=== PATIENT | male | born 1930 | race Caucasian/White ===

== ENCOUNTER 2016-03-20 12:04 | Day surgery (SDC) | payer OTHER ==
[2016-03-15 15:16] VITALS: BMI 41.0
[~2016-03-20] VITALS: Ht 160 cm; Wt 107.0 kg
[~2016-03-20 12:04] MED LIST: AMPI500C9 PO; ATEN50TA8 PO; ATOR-26 PO; CHOL1000 PO; DIGO0.2519 PO; LACTATED RINGER'S 1000ML 1,000 ML IV SCH; LISI-729 PO; MULT-190 PO; MULT-506 PO; PSYL1POW4 PO; VANCOMYCIN INJ 1,000 MG in SODIUM CHLORIDE 0.9% 250ML 250 ML IV SCH
[2016-03-20 12:27] VITALS: BP 147/84; PULSE 79; TEMP 37; O2SAT 96; Ht 160 cm; Wt 107.0 kg
[2016-03-20] MEDS ORDERED: FENTANYL CITRATE INJ 50 MCG/1 ML 2 ML VIAL ONE (12:33)
--- NOTE | 2016-03-20 12:49 | History & Physical Bridge Note ---
H&P Re-Evaluation Bridge Note: I have examined the patient, reviewed the History & Physical and in the interval since the performance of the History & Physical I have noted the following changes of clinical significance: No changes noted
[2016-03-20] MEDS ORDERED: FENTANYL CITRATE INJ 50 MCG/1 ML 2 ML VIAL IV PRN (13:15)
[2016-03-20] MEDS ORDERED: ONDANSETRON INJ 2 MG/ML 2 ML VIAL IV PRN (13:15)
[2016-03-20] MEDS ORDERED: ATROPINE SULFATE 0.1 MG/ML 5ML SYR IV PRN (13:15)
[2016-03-20] MEDS ORDERED: LABETALOL HCL IV 5 MG/ML 20ML IV PRN (13:15)
[2016-03-20] MEDS ORDERED: ONDANSETRON INJ 2 MG/ML 2 ML VIAL ONE ×2 (13:23→14:50)
[2016-03-20] MEDS ORDERED: LIDOCAINE HCL 2% 2 ML VIAL (20MG/ML) ONE (13:23)
[2016-03-20] MEDS ORDERED: PHENYLEPHRINE 100MCG/ML 5ML SYR ONE (13:23)
[2016-03-20] MEDS ORDERED: PROPOFOL IV EMULSION 10 MG/ML 20 ML VIAL IV ONE (13:23)
[2016-03-20] MEDS ORDERED: ETOMIDATE 2 MG/ML 20 ML VIAL IV ONE (13:23)
--- NOTE | 2016-03-20 14:32 | [facility] Post Operative Brief Note ---
Immediate Operative Summary Operative Date Mar 20, 2016. 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 Gallagher Hr Administrative Assistant Surgeon(s) none Estimated Blood Loss 10cc Findings Previously treated left distal ureteral tumor seems to have responded well to his prior treatment. At most, there was a very small papillary frond, and this was lasered and destroyed after it was biopsied. Overall ureteral health appeared to be good. Unfortunately, his full ureter was very tight and did not readily accept a flexible scope. I balloon dilated the area near my prior surgery, but even the proximal ureter was quite tight. I was able to pass a flexible scope to the level of the upper and lower pole moieties bifurcation ( UPJ) but not into the kidney itself. I performed a careful exit ureteroscopy and found a healthy looking ureter without tumors or trauma from the efforts at dilation Specimens Specimen: A. left distal ureteral biopsy Drains [id number] Anesthesia gen Complication(s) None Disposition Recovery Room / PACU (stable)
[2016-03-20] MEDS ORDERED: ACET-749 PO (14:34)
[2016-03-20] MEDS ORDERED: KETOROLAC TROMETHAMINE 30 MG/ML VIAL IV. STA (14:34)
[2016-03-20] MEDS ORDERED: SODIUM CHLORIDE 0.9% 1000ML 1,000 ML IV SCH (14:34)
[2016-03-20] MEDS ORDERED: DOCU-94 PO (14:34)
--- NOTE | 2016-03-20 14:36 | Discharge Instructions ---
Discharge Instructions Admission Reason for Admission: Ureteral Tumor Discharge Discharge Diagnosis / Problem: Ureteral tumor Discharge Goals Goal(s): Decrease discomfort, Improve function, Increase independence, Improve disease control Activity Recommendations Activity Limitations: resume your previous activity Lifting Limitations: none Exercise/Sports Limitations: none May Resume Sexual Activity: when tolerated Shower/Bathe: no limitations Driving or Machine Use: no limitations . Instructions / Follow-Up Instructions / Follow-Up Please keep your previously scheduled follow up appointment with Dr. Gallagher Discharge Diet Recommended Diet: Regular Diet Procedures Procedures Performed: Cystoscopy, Left Retrograde Pyelogram, Ureteroscopy/Biopsy left ureteral lesion ; laser ablation of left ureteral tumor ; Left ureteral dilation (balloon); L ureteral stent placement ([id number]) Pending Studies Studies pending at discharge: no Medical Emergencies . Who to Call and When: Medical Emergencies: If at any time you feel your situation is an emergency, please call 911 immediately. . Non-Emergent Contact Non-Emergency issues call your: Urologist Call Non-Emergent contact if: you have a fever, temperature is above 101.5, your pain is worsening . . "Provider Documentation" section prepared by Fuad Cooper. VTE Core Measure Inpt VTE Proph given/why not?: Treatment not indicated
[2016-03-20] MEDS ORDERED: OXYCODONE/ACETAMINOPHEN 5-325 TAB PO PRN ×2 (14:45)
--- NOTE | 2016-03-20 15:03 | Anesthesiology Progress Note ---
Anesthesia Post Op Note Date & Time Mar 20, 2016 at 15:02 Vital Signs Vital Signs Past 12 Hours Date Time Temp Pulse Resp B/P Pulse Ox O2 Delivery O2 Flow Rate FiO2 03/20/16 15:00 63 16 152/77 98 Room Air 03/20/16 14:50 61 16 157/78 99 Room Air 03/20/16 14:43 62 16 152/77 100 Mask 10 03/20/16 14:33 36.0 62 16 132/63 100 Mask 10 03/20/16 12:27 37.0 79 22 147/84 96 Room Air Notes Mental Status: alert / awake / arousable, participated in evaluation Pt Amnestic to Procedure: Yes Nausea / Vomiting: adequately controlled Pain: adequately controlled Airway Patency, RR, SpO2: stable & adequate BP & HR: stable & adequate Hydration State: stable & adequate Anesthetic Complications: no major complications apparent
[2016-03-20 15:10] VITALS: BP 145/86; PULSE 66; TEMP 36.5; O2SAT 98
--- NOTE | 2016-03-20 15:26 | OPERATIVE REPORT ---
DATE OF OPERATION: 03/20/2016 PREOPERATIVE DIAGNOSIS: Left ureteral tumor. POSTOPERATIVE DIAGNOSIS: Left ureteral tumor. PROCEDURE PERFORMED: Cystoscopy, left ureteroscopy, left biopsy of ureteral tumor, left laser ablation of ureteral tumor, left retrograde pyelogram, left balloon dilation, left ureteral stent placement 6 [place] x 26 cm. SURGEON: Dr. Christ Gallagher. ANESTHESIA: General. ESTIMATED BLOOD LOSS: 10 mL. URINE OUTPUT: Not recorded. SPECIMENS: Left ureteral biopsy for routine pathology. DESCRIPTION OF THE PROCEDURE: Michael Ferguson was identified in the preoperative holding area. Appropriate informed consents were reviewed and completed and the patient was transported to the operating suite. Upon arrival, he received appropriate preoperative antibiotics in the form of vancomycin. Adequate general anesthesia was achieved and the patient was placed in dorsolithotomy position where he was sterilely prepped and draped in standard fashion. I began the case by passing a 22-[place] cystoscope per urethra and inspecting the bladder. He has a healthy appearing bladder without any evidence of mucosal tumors in the bladder. Ureteral orifices were in orthotopic position. Left ureteral orifice was cannulated with a sensor wire and a 5 [place] open ended catheter. The wire was advanced to the kidney without difficulty. I then withdrew the catheter and the cystoscope and I entered alongside the wire with a semirigid ureteroscope. Utilizing a second wire to help stent open the ureteral orifice, I was able to guide the semi-rigid scope into the ureter. Approximately 4-5 cm above the UO I encountered an area consistent with the area previously treated for ureteral tumor. There was no clear papillary tumors in this area, but it was somewhat tight. I was able to navigate the semirigid scope through this. Just above this area was slightly dilated and in that area there may have been one small papillary frond protruding. DICTATION ENDED HERE! I attest to the content of the Intraoperative Record and any orders documented therein. Any exceptio ns are noted below.
[2016-03-20 15:41] VITALS: BP 115/82; PULSE 66; O2SAT 98
[2016-03-20 16:15] VITALS: BP 152/83; PULSE 78; TEMP 36.4; O2SAT 98
--- NOTE | 2016-03-20 16:40 | OPERATIVE REPORT ---
DATE OF OPERATION: 03/20/2016 PREOPERATIVE DIAGNOSIS: Left ureteral tumor. POSTOPERATIVE DIAGNOSIS: Left ureteral tumor. PROCEDURES PERFORMED: Cystoscopy, left ureteroscopy, left ureteral biopsy of tumor, left laser ablation of tumor, left ureteral dilation with balloon, left retrograde pyelogram and left ureteral stent placement 6 [place] x 26 cm. ANESTHESIA: General. ESTIMATED BLOOD LOSS: 10 mL. URINE OUTPUT: Not recorded. SPECIMENS: Left ureteral biopsy. COMPLICATIONS: There were no complications. DESCRIPTION OF THE PROCEDURE: Michael Ferguson was identified in the preoperative holding area. Appropriate informed consents were reviewed and completed and the patient was transported to the operating suite. Upon arrival, he received appropriate preoperative antibiotics in the form of vancomycin. Adequate general anesthesia was achieved and the patient was placed in dorsal lithotomy position where he was sterilely prepped and draped in standard fashion. I began the case by passing a 22-[place] cystoscope per urethra. Inspection of the urethra revealed no evidence of stricture disease. Prostate was patent and open. Inspection of the bladder revealed no evidence of any mucosal disease or tumors within the bladder itself. Ureteral orifices were in orthotopic position. I was able to visualize the left UO and cannulate it with a 6-[place] open-ended catheter and a sensor wire. I then reentered the bladder alongside the wire with a semirigid ureteroscope. I guided this into the distal aspect of the ureter without difficulty, utilizing a second wire to help stent open the ureteral orifice. I was able to advance this retrograde to the level the tumor was previously seen. It was slightly tight in this area, but I was able to navigate the scope beyond that without difficulty. There was slight dilation just above the area of previous treatment. In this area, there may have been one small papillary frond visible, protruding from the left lateral wall of the ureter. This was captured in a biopsy forceps, utilizing the [place] ureteroscopic biopsy forceps and this was excised en bloc with that. I biopsied several other areas around this region. Then I passed a laser fiber and fulgurated the base of all these biopsy sites and any other area I would be more concerned for tumor recurrence. Overall, my impression is that he responded extremely well to his initial treatment endoscopically of this ureteral tumor. After feeling comfortable with this area of the ureter, I passed a second wire through the scope to the level of the kidney and made an effort to pass a flexible scope. Of note, I did advance the rigid scope to its maximal extent and saw no other tumors within the ureter up above the vessels. Wire advanced to the kidney without difficulty. I attempted to pass a flexible scope; however, it was not passed easily, catching at the area that was somewhat tight at the distal most aspect of my prior treatment location. After an attempt to dilate this with a 10-[place] double-lumen catheter also failed, I did attempt to pass a balloon dilator and I dilated this area without difficulty. There was a waste visualized fluoroscopically which opened appropriately. Ultimately, I was able to bypass this area utilizing a disassembled flexible ureteroscope. It advanced with pretty significant difficulty through the remaining part of the ureter and I ultimately got it up to the level of the UPJ. I was able to go no further after that extent. Inspection at that area revealed no evidence of clear stricture, just a tight ureter in general. I passed some contrast at that time and I saw bifurcation of the system which is the point where I was able to advance this into the upper and lower pole of the collecting system of the kidney. I was approximately at the UPJ. I performed a careful exit ureteroscopy. There was relatively atraumatic ureter with no evidence of any other mucosal abnormalities, strictures or tumors. After exiting with the ureteroscope, I placed a 6 [place] 26 cm double-J stent into the upper pole of the left kidney with the hope that I would be able to passively dilate this over the next several weeks for him to be able to return to evaluate the kidney. My interest in evaluating the kidney stems from recent CT scan which showed some concern for a filling defect in the upper pole. We will attempt to revisit this here in the future. At the conclusion of the case, the patient's bladder was emptied. All cystoscopic equipment was removed and the case concluded. I attest to the content of the Intraoperative Record and any orders documented therein. Any exceptio ns are noted below.
[2016-09-24] MEDS ORDERED: JNV25 PO (14:03)
[2016-09-24] MEDS ORDERED: INSDGIPEN SC (14:03)
[2016-09-24] MEDS ORDERED: ASPEC81 PO (14:03)
== END 2016-03-20 16:39 | disposition home or self-care (01) ==
LOC: C.ACU 12:04
PROVIDERS: ATTEND Urology
DX: C67.9 Malignant neoplasm of bladder, unspecified (principal); N40.1 Benign prostatic hyperplasia with lower urinary tract symptoms; N13.8 Other obstructive and reflux uropathy; R31.0 Gross hematuria; Z96.659 Presence of unspecified artificial knee joint; Z96.649 Presence of unspecified artificial hip joint

== ENCOUNTER 2016-04-05 05:23 | Day surgery (SDC) | payer OTHER ==
[2016-03-28 11:24] VITALS: BMI 40.0
[~2016-04-05] VITALS: Ht 162.6 cm; Wt 106.4 kg
[~2016-04-05 05:23] MED LIST changes: -LACTATED RINGER'S 1000ML 1,000 ML IV SCH; -VANCOMYCIN INJ 1,000 MG in SODIUM CHLORIDE 0.9% 250ML 250 ML IV SCH
[2016-04-05] MEDS ORDERED: PATIENT'S ALLERGY INFO NEEDS ENTERED SCH (06:00)
[2016-04-05] MEDS ORDERED: LACTATED RINGER'S 1000ML 1,000 ML IV SCH (06:00)
[2016-04-05] MEDS ORDERED: VANCOMYCIN 1GM/270ML NSS IV SCH (06:00)
[2016-04-05 06:16] VITALS: BP 141/90; PULSE 70; TEMP 36.8; O2SAT 97; Ht 162.6 cm; Wt 106.4 kg
[2016-04-05] MEDS ORDERED: ONDANSETRON INJ 2 MG/ML 2 ML VIAL ONE (06:42)
[2016-04-05] MEDS ORDERED: PROPOFOL IV EMULSION 10 MG/ML 20 ML VIAL IV ONE (06:42)
[2016-04-05] MEDS ORDERED: DEXAMETHASONE SOD INJ 4 MG/ML VIAL ONE (06:42)
[2016-04-05] MEDS ORDERED: LIDOCAINE HCL 2% 2 ML VIAL (20MG/ML) ONE (06:42)
[2016-04-05] MEDS ORDERED: FENTANYL CITRATE INJ 50 MCG/1 ML 2 ML VIAL ONE (06:42)
--- NOTE | 2016-04-05 07:10 | History & Physical Bridge Note ---
H&P Re-Evaluation Bridge Note: I have examined the patient, reviewed the History & Physical and in the interval since the performance of the History & Physical I have noted the following changes of clinical significance: No changes noted Plan for ureteroscopy and possible biopsy/laser destruction of tumor.
[2016-04-05] MEDS ORDERED: ONDANSETRON INJ 2 MG/ML 2 ML VIAL IV PRN (07:15)
[2016-04-05] MEDS ORDERED: MEPERIDINE HCL 25 MG/ML CARP IV PRN (07:15)
[2016-04-05] MEDS ORDERED: FLUMAZENIL 0.1 MG/1 ML 10 ML VIAL IV PRN (07:15)
[2016-04-05] MEDS ORDERED: ATROPINE SULFATE 0.1 MG/ML 5ML SYR IV PRN (07:15)
[2016-04-05] MEDS ORDERED: PHENYLEPHRINE 100MCG/ML 5ML SYR IV PRN (07:15)
[2016-04-05] MEDS ORDERED: HYDROmorphone INJ 2 MG/ML SYR/VIAL IV PRN (07:15)
[2016-04-05] MEDS ORDERED: FENTANYL CITRATE INJ 50 MCG/1 ML 2 ML VIAL IV PRN (07:15)
[2016-04-05] MEDS ORDERED: NALOXONE HCL 0.4 MG/1 ML VIAL/CARP IV PRN (07:15)
[2016-04-05] MEDS ORDERED: LABETALOL HCL IV 5 MG/ML 20ML IV PRN (07:15)
[2016-04-05] MEDS ORDERED: EpHEDrine SULFATE INJ 50 MG/ML AMP IV PRN (07:15)
[2016-04-05] MEDS ORDERED: PHENYLEPHRINE 100MCG/ML 5ML SYR ONE (07:43)
[2016-04-05] MEDS ORDERED: EpHEDrine SULFATE 50MG/5ML SYR ONE (07:43)
[2016-04-05] MEDS ORDERED: CONRAY 30% 150ML BOTTLE INSTIL ONE (08:00)
[2016-04-05] MEDS ORDERED: PHENYLEPHRINE HCL INJ 10 MG/ML VIAL ONE (08:12)
[2016-04-05] MEDS ORDERED: SODIUM CHLORIDE 0.9% 1000ML 1,000 ML IV SCH (08:37)
--- NOTE | 2016-04-05 08:37 | [facility] Post Operative Brief Note ---
Immediate Operative Summary Operative Date Apr 05, 2016. Pre-Operative Diagnosis L ureteral tumor Post-Operative Diagnosis No evidence of recurrent left ureteral tumor; left renal stone Procedure(s) Performed cystoscopy; left ureteroscopy; biopsy of renal pelvis; laser fulguration of biopsy site; laser lithotripsy; ureteral stent exchange Surgeon Dr. 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 within the upper pole, there was a fold of the renal pelvis which I presume corresponds to the question of a filling defect. There were no papillary tumors. He did have a single stone in the upper pole and this was lasered and fragmented. Prior treatment site in the mid/distal ureter was healthy appearing and showed no evidence of tumor recurrence Specimens A. Left Renal Pelvis Biopsy Drains [id number] with string Anesthesia gen Complication(s) None Disposition Recovery Room / PACU (stable)
[2016-04-05] MEDS ORDERED: NITR1CAP16 PO (08:39)
[2016-04-05] MEDS ORDERED: ACET-749 PO (08:39)
[2016-04-05] MEDS ORDERED: PHEN-775 PO (08:39)
--- NOTE | 2016-04-05 08:43 | Discharge Instructions ---
Discharge Instructions Admission Reason for Admission: Ureteral Tumor Discharge Discharge Diagnosis / Problem: No evidence of recurrent tumor; kidney stone Discharge Goals Goal(s): Decrease discomfort, Improve function, Increase independence, Improve disease control Activity Recommendations Activity Limitations: resume your previous activity Lifting Limitations: none Exercise/Sports Limitations: none May Resume Sexual Activity: when tolerated Shower/Bathe: no limitations Driving or Machine Use: no limitations (as long as you arent taking pain medications) . Instructions / Follow-Up Instructions / Follow-Up Please come to Dr. Gallagher's office on Saturday, April 09 at 11:20AM to have your stent removed Discharge Diet Recommended Diet: Regular Diet Procedures Procedures Performed: cystoscopy; left ureteroscopy; biopsy of renal pelvis; laser fulguration of biopsy site; laser lithotripsy; ureteral stent exchange Pending Studies Studies pending at discharge: no Medical Emergencies . Who to Call and When: Medical Emergencies: If at any time you feel your situation is an emergency, please call 911 immediately. . Non-Emergent Contact Non-Emergency issues call your: Urologist Call Non-Emergent contact if: you have a fever, temperature is above 101.5, your pain is not controlled, your pain is worsening . . "Provider Documentation" section prepared by Fuad Cooper. VTE Core Measure Inpt VTE Proph given/why not?: Treatment not indicated
[2016-04-05] MEDS ORDERED: OXYCODONE/ACETAMINOPHEN 5-325 TAB PO PRN ×2 (08:45)
[2016-04-05] MEDS ORDERED: ACETAMINOPHEN 325 MG TAB PO PRN (08:45)
--- NOTE | 2016-04-05 09:08 | OPERATIVE REPORT ---
DATE OF OPERATION: 04/05/2016 PREOPERATIVE DIAGNOSIS: Left ureteral tumor. POSTOPERATIVE DIAGNOSIS: Left ureteral tumor without evidence of recurrent left renal stone. PROCEDURE PERFORMED: Cystoscopy, left ureteroscopy, left renal pelvis biopsy, left laser lithotripsy, left fulguration of biopsy site, left ureteral stent exchange 6-[place] x 26 cm. ANESTHESIA: General. ESTIMATED BLOOD LOSS: 5 mL SPECIMEN: Renal pelvis biopsy for routine pathology. COMPLICATIONS: There were no complications. DESCRIPTION OF THE PROCEDURE: Michael Ferguson was identified in the preoperative holding area. Appropriate informed consents were reviewed and completed, and the patient was transported to the operating suite. He received vancomycin and general anesthesia and was placed in dorsal lithotomy position where he was sterilely prepped and draped. Of note, the patient has previously had a left distal ureteral tumor which was treated by laser fulguration. He had initial treatment and a subsequent treatment approximately 2 weeks ago. During the subsequent treatment, I took several biopsies, one of which showed a very small amount of low-grade residual tumor. This was also lasered at that time. He returns today for evaluation of the remaining part of this as well as inspection of the upper tract as I was unable to pass flexible scope into the upper pole of the kidney, and on his previous CT imaging, there was some question of a filling defect in the left kidney. I began the case today by passing a cystoscope and grasping distal end of his ureteral stent and withdrawing it to the meatus. I was able to intubate this with a Sensor wire and advance the wire to the kidney without difficulty. I then placed a 10-[place] double-lumen catheter and advanced this into the upper pole moiety and placed a second wire through it. After removing the 10-[place] double-lumen catheter, I reserved one wire as a safety wire and I used the other to pass a flexible scope. I was able to perform a flexible ureteroscopy and upper pole renoscopy at that time. This was the area that raised some concern in terms of the filling defect, and immediately upon entry, I encountered a fold of mucosa kind of protruding into the true renal pelvis. I suspect that this is what was seen, there were no other papillary tumors appreciated. I did find a stone in the upper pole as well, it was black in appearance and approximately 4-5 mm, maybe slightly larger. After this inspection, I elected to pass the biopsy forceps and biopsied this fold of tissue given his prior diagnosis of cancer in the distal ureter. I biopsied this in 3 places and then used a 200 micron laser fiber to fulgurate the base of the biopsy site. There was excellent hemostasis. I then treated the kidney stone that was there, fragmenting it into pieces smaller than 1 mm and deemed safe for spontaneous passage. I then performed a repeat evaluation of the upper pole before withdrawing this down to the proximal ureter. Of note, he has essentially a bifid system with merger of the upper and lower pole moiety approximately 5 cm below the kidney. I went down to this bifurcation and I guided my ureteroscope into the lower pole. I inspected the full lower pole and identified no other tumors or stones. This was a healthy-appearing system. I withdrew the scope again just below that bifurcation and I injected contrast material to document that I had in fact inspected all these areas. This confirmed that I had inspected the full kidney. I then withdrew the ureteroscope very slowly and I inspected the area of prior treatment. There was no evidence of any tumor recurrence nor significant scarring. It was a healthy-appearing ureter. After exiting the ureter, I placed a 6-[place] 26-cm double-J stent into the upper pole. I did leave a string attached to this, I decompressed the bladder and concluded the case. The string was affixed to his penis with a tape and the case concluded. The patient was extubated and taken to the PACU in stable condition. I attest to the content of the Intraoperative Record and any orders documented therein. Any exceptio ns are noted below.
--- NOTE | 2016-04-05 09:17 | DIAGNOSTIC IMAGING REPORT ---
RETROGRADE INCLUDES KUB HISTORY: LT CYSTO/STENT FLUOROSCOPY TIME: 24 seconds FINDINGS: 4 fluoroscopic spot images were submitted for review. 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 There is a guidewire placed in the upper pole moiety. This is followed by placement of a ureteral stent. The ureteral stent appears be in good position. There is a left hip prosthesis. IMPRESSION: Fluoroscopy provided for left ureteral stent placement.. Electronically signed by: Jef Amaya M.D. 04/05/2016 9:15 AM Dictated Date/Time: 04/05/2016 9:14 AM
--- NOTE | 2016-04-05 09:22 | Anesthesiology Progress Note ---
Anesthesia Post Op Note Date & Time Apr 05, 2016 at 09:21 Vital Signs Pain Intensity: 0 Vital Signs Past 12 Hours Date Time Temp Pulse Resp B/P Pulse Ox O2 Delivery O2 Flow Rate FiO2 04/05/16 09:02 36.5 04/05/16 08:58 129/74 04/05/16 08:56 74 21 96 04/05/16 08:56 72 21 04/05/16 08:53 132/78 04/05/16 08:51 75 22 97 04/05/16 08:51 71 22 04/05/16 08:50 68 20 04/05/16 08:50 74 20 97 04/05/16 08:48 143/73 04/05/16 08:45 74 20 04/05/16 08:45 77 20 100 04/05/16 08:43 144/79 04/05/16 08:40 74 16 100 04/05/16 08:40 74 16 04/05/16 08:38 141/78 04/05/16 08:35 74 22 04/05/16 08:35 77 22 100 04/05/16 08:33 140/79 04/05/16 08:32 150/77 04/05/16 08:30 37.1 75 16 150/77 100 Mask 10 04/05/16 06:16 36.8 70 20 141/90 97 Room Air Notes Mental Status: alert / awake / arousable, participated in evaluation Pt Amnestic to Procedure: Yes Nausea / Vomiting: adequately controlled Pain: adequately controlled Airway Patency, RR, SpO2: stable & adequate BP & HR: stable & adequate Hydration State: stable & adequate Anesthetic Complications: no major complications apparent
[2016-04-05 09:25] VITALS: BP 119/77; PULSE 75; TEMP 36.8; O2SAT 93
[2016-04-05 09:45] VITALS: BP 129/67; PULSE 80; TEMP 36.4; O2SAT 98
[2016-04-05 10:15] VITALS: BP 153/79; PULSE 71; TEMP 36.4; O2SAT 95
[2016-09-24] MEDS ORDERED: JNV25 PO (14:03)
[2016-09-24] MEDS ORDERED: ASPEC81 PO (14:03)
[2016-09-24] MEDS ORDERED: INSDGIPEN SC (14:03)
== END 2016-04-05 10:15 | disposition home or self-care (01) ==
LOC: C.ACU 05:23
PROVIDERS: ATTEND Urology
DX: N20.0 Calculus of kidney (principal); Z08 Encounter for follow-up examination after completed treatment for malignant neoplasm; Z85.54 Personal history of malignant neoplasm of ureter; N40.1 Benign prostatic hyperplasia with lower urinary tract symptoms; N13.8 Other obstructive and reflux uropathy

== ENCOUNTER → 2016-04-16 | Outpatient (CLI) | payer OTHER ==
[~2016-04-16] MED LIST changes: +ACET-749 PO; -AMPI500C9 PO; +ASPEC81 PO; +GLC500 PO; +INSDGIPEN SC; +JNV25 PO; +NITR1CAP16 PO; +PHEN-775 PO
--- NOTE | 2016-04-16 10:54 | DIAGNOSTIC IMAGING REPORT ---
KUB CLINICAL HISTORY: D49.59 Ureteral [id number] preoperative evaluation COMPARISON STUDY: No previous studies for comparison. FINDINGS: Nonobstructive bowel pattern. Total left hip replacement. Severe degenerative change right hip. Significant degenerative change throughout the entire lumbar spine. Multiple pelvic vascular calcifications. Small nonobstructing calcification lower pole right kidney. IMPRESSION: No acute process. Degenerative change. Electronically signed by: Francis Calle M.D. 04/16/2016 10:52 AM Dictated Date/Time: 04/16/2016 10:51 AM
== END | disposition home or self-care (01) ==
LOC: C.RAD 10:13
PROVIDERS: ATTEND Urology
DX: D49.59 Neoplasm of unspecified behavior of other genitourinary organ (principal)

== ENCOUNTER → 2016-06-11 | Outpatient (CLI) | payer OTHER ==
[~2016-06-11] MED LIST changes: -NITR1CAP16 PO; -PHEN-775 PO
--- NOTE | 2016-06-11 13:42 | DIAGNOSTIC IMAGING REPORT ---
BONE SCAN 3PHASE WHOLE BODY CLINICAL HISTORY: The pain status post knee arthroplasty. Prostate carcinoma COMPARISON STUDY: No previous studies for comparison. FINDINGS: The patient was injected with 26.4 mCi of technetium 99m MDP. A vascular sequence centered on the knees was performed. Flow appears symmetric. Blood pool images the knees were symmetric. There are photopenic defects consistent with bilateral knee arthroplasties. Three-hour delayed whole body images were obtained. These were supplemented with static images of the knees. There are intense foci of increased activity within both ankles. There are foci of increased activity within both wrists. There are foci of increased activity within both shoulders. There is a focus of increased activity involving the left sternomanubrial joint. There is a focus of increased activity within the lumbar spine at the L1 and L4 levels. There is no pathologic activity within the knees. IMPRESSION: 1. 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 Otherwise the activity appears within normal limits 2. Foci of abnormal increased activity involving both shoulders wrists and ankles, statistically on a degenerative/post traumatic basis 3. Unexplained focus of increased activity involving the left sternomanubrial joint. 4. Unexplained foci of increased activity involving the lumbar spine at the L1 and L4 levels. Electronically signed by: Matthew Gallo M.D. 06/11/2016 1:41 PM Dictated Date/Time: 06/11/2016 1:37 PM
== END | disposition home or self-care (01) ==
LOC: C.NUCL 09:29
PROVIDERS: ATTEND Physician Assistant
DX: T84.84XA Pain due to internal orthopedic prosthetic devices, implants and grafts, initial encounter (principal); Y83.1 Surgical operation with implant of artificial internal device as the cause of abnormal reaction of the patient, or of later complication, without mention of misadventure at the time of the procedure

== ENCOUNTER → 2016-06-15 | Outpatient (CLI) | payer OTHER ==
[~2016-06-15] VITALS: Ht 160 cm; Wt 107.7 kg
[2016-06-15 14:58] VITALS: Ht 160 cm; Wt 107.7 kg
--- NOTE | 2016-06-15 15:30 | PAT Medication Instructions ---
Service Date Jun 15, 2016. Current Home Medication List Atenolol (Tenormin), 50 MG PO QAM Atorvastatin (Lipitor), 80 MG PO HS Cholecalciferol (Vitamin D3), 2 TAB PO QAM Digoxin (Digox), 1 TAB PO QAM Lisinopril (Zestril), 5 MG PO QAM Multivitamin (Multivitamin), 1 TAB PO QAM Ocuvite Preservision (Ocuvite Preservision), 1 TAB PO BID Psyllium (Metamucil), 1 DOSE PO 2XWK Medication Instructions For Your Scheduled Surgery - Hold the following medications the morning of surgery: Psyllium (Metamucil), 1 DOSE PO 2XWK Ocuvite Preservision (Ocuvite Preservision), 1 TAB PO BID Multivitamin (Multivitamin), 1 TAB PO QAM Lisinopril (Zestril), 5 MG PO QAM Cholecalciferol (Vitamin D3), 2 TAB PO QAM - Take the following medications the morning of surgery with a sip of water: Digoxin (Digox), 1 TAB PO QAM Atenolol (Tenormin), 50 MG PO QAM - Take the following medications as scheduled the night before surgery: Ocuvite Preservision (Ocuvite Preservision), 1 TAB PO BID Atorvastatin (Lipitor), 80 MG PO HS If you have any questions please call us at [phone] (Arely Santoyo PA-C ) or [phone] or [phone]
[2016-06-15 16:07] LABS: BASO % 0.2 %; BASO ABS # 0.01 K/uL (0-0.2); COMPLETE YES; IG% 0.3 %; LYMPH % 33.3 %; LYMPH ABS # 1.97 K/uL (1.2-3.4); MEAN CORPUSCULAR HEMOGLOBIN 27.9 pg (25-34); MEAN CORPUSCULAR HGB CONC 33.2 g/dl (32-36); MEAN PLATELET VOLUME 9.5 fL (7.4-10.4); MONO % 11.2 %; PLATELET COUNT 161 K/uL (130-400); RED BLOOD COUNT 4.88 M/uL (4.7-6.1); WHITE BLOOD COUNT 5.91 K/uL (4.8-10.8)
[2016-06-15 16:23] LABS: URINE APPEARANCE CLEAR (CLEAR); URINE BILIRUBIN NEG (NEG); URINE COLOR YELLOW; URINE NITRITE NEG (NEG); URINE SPECIFIC GRAVITY 1.021 (1.000-1.030); UROBILINOGEN NEG (NEG)
[2016-06-15 16:29] LABS: MANUAL MICROSCOPIC REQUIRED? NO; REVIEW REQ? NO
[2016-06-15 16:44] LABS: CREATININE 0.89 mg/dl (0.60-1.40); POTASSIUM 4.6 mmol/L (3.5-5.1)
[2016-06-18 12:12] LABS: LYMPH ABS # 2.01 K/uL (1.2-3.4); WHITE BLOOD COUNT 6.99 K/uL (4.8-10.8)
[2016-06-18 12:25] LABS: PROTHROMBIN TIME (PATIENT) 10.6 SECONDS (9.0-12.0)
[2016-06-18 12:34] LABS: ESTIMATED AVERAGE GLUCOSE 151 mg/dl; HA1C FLAG Normal (Normal)
--- NOTE | 2016-08-08 10:06 | CODING QUERY MEDICAL NECESSITY ---
SUPPORTING DIAGNOSIS NEEDED Dr. Maxwell, A supporting diagnosis is required for the test/procedure performed on this patient in order for us to be reimbursed by the patient's insurance. Please provide a supporting diagnosis for the following test/procedure listed below next to the test name along with your signature. *If there is no additional diagnosis for this patient that would support the following test/procedure please document that below next to the test/procedure. Test(s)/Procedure(s) that require a supporting diagnosis: * [id number] GLYCATED HEMOGLOBIN DIAGNOSIS: DATE OF SERVICE: 06/18/16 Provider Signature: Date: Thank you Gene Onofre [facility] Once completed, please kindly fax back to [phone] For questions please call [phone]
== END | disposition home or self-care (01) ==
LOC: C.LAB 08:00 → EDSTATUS 06-26 11:30
PROVIDERS: ATTEND Orthopaedic Surgery
DX: Z01.812 Encounter for preprocedural laboratory examination (principal); Z01.818 Encounter for other preprocedural examination

== ENCOUNTER → 2016-06-18 | Outpatient (CLI) | payer OTHER ==
[~2016-06-18] MED LIST changes: -ACET-749 PO; +OPTIRAY 320 IV PRN
--- NOTE | 2016-06-18 11:55 | DIAGNOSTIC IMAGING REPORT ---
CT ABD/PELVIS COMBO CLINICAL HISTORY: Ureteral neoplasm. COMPARISON STUDY: 02/22/2016 TECHNIQUE: Unenhanced images were obtained to the abdomen and pelvis. The patient was then injected with 50 cc Optiray 320. After 5 minute delay, the patient was re-images of the dynamic helical fashion during the additional administration of [address] DOSE: 1875.10 mGycm FINDINGS: Lower chest: There is subpleural reticulation. Liver: There is a 19 mm left lobe hepatic cyst. There is a stable partially calcified 23 mm lesion within the left hepatic lobe. There is a 12 mm right lobe hepatic cyst. No new or enlarging hepatic masses are evident. Gallbladder: Unremarkable. Spleen: Normal in size and attenuation. Pancreas: Unremarkable. Adrenal glands: There is an 18 mm right adrenal adenoma. Kidneys: There are 3 left renal calculi, the largest of which measures 5 mm. There are 3 lower pole right renal calculi, the largest of which measures 5 mm. There is a 25 mm lower pole right renal cyst. There is a 15 mm mid pole right renal cyst. There is a 2 cm upper pole left renal cyst. There is an 8 mm lower pole left renal cyst. There is a 9 mm filling defect within the upper pole collecting system on the left. This appears stable to slightly smaller than on the preceding study. No ureteral filling defects are visualized. There is been resolution of the previously identified focal wall thickening of the distal left ureter. Bowel: There are no transition zones indicate bowel obstruction. There is no acute appendicitis. There is no acute diverticulitis. Peritoneum: There is no intraperitoneal free air or abdominal ascites. Vasculature: There is ectasia of the infrarenal abdominal aorta which measures 3 cm in maximal diameter. Adenopathy: None. 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 Skeletal structures: There are postsurgical changes of a total left hip arthroplasty. There are advanced osteophytic changes involving the right hip. There are multilevel degenerative changes within the spine. IMPRESSION: 1. Interval resolution of the distal left ureteral wall thickening. 2. 9 mm filling defect within the upper pole left renal collecting system. This appears stable to slightly smaller than on the prior study 3. The previously described 5 mm filling defect within the right upper pole collecting system, is not visualized with certainty on today's study 4. Bilateral nephrolithiasis 5. Bilateral renal cysts 6. No evidence of pathologic adenopathy 7. TURP defect within the prostate Electronically signed by: Matthew Gallo M.D. 06/18/2016 11:54 AM Dictated Date/Time: 06/18/2016 11:41 AM
== END | disposition home or self-care (01) ==
LOC: C.CTS 10:12
PROVIDERS: ATTEND Urology
DX: D49.59 Neoplasm of unspecified behavior of other genitourinary organ (principal); N20.0 Calculus of kidney; N28.1 Cyst of kidney, acquired

== ENCOUNTER → 2016-07-02 | Outpatient (CLI) | payer OTHER ==
[~2016-07-02] MED LIST changes: -OPTIRAY 320 IV PRN
--- NOTE | 2016-07-02 14:40 | DIAGNOSTIC IMAGING REPORT ---
RIGHT KNEE CT CT DOSE: 290.28 mGy.cm HISTORY: Right knee pain. TECHNIQUE: Multiaxial CT images of the right knee were performed and reformatted in the sagittal and coronal plane without the use of contrast. COMPARISON: Bone scan 06/11/2016. FINDINGS: There is a right total knee arthroplasty. This results in difficult evaluation of the knee due to the metallic artifact. No definite fracture or dislocation. No abnormal periprosthetic lucency. Vascular calcifications are noted. Trace knee effusion. IMPRESSION: 1. Suboptimal evaluation of the right knee due to the metallic artifact from the right total knee arthroplasty. 2. No definite fracture or dislocation. 3. No abnormal periprosthetic lucency. 3. Trace knee effusion Electronically signed by: Jef Amaya M.D. 07/02/2016 2:38 PM Dictated Date/Time: 07/02/2016 2:35 PM
== END | disposition home or self-care (01) ==
LOC: C.CTS 14:05
PROVIDERS: ATTEND Orthopaedic Surgery
DX: T84.84XA Pain due to internal orthopedic prosthetic devices, implants and grafts, initial encounter (principal); Y84.8 Other medical procedures as the cause of abnormal reaction of the patient, or of later complication, without mention of misadventure at the time of the procedure

== ENCOUNTER 2016-09-21 16:20 | Inpatient (IN) | payer OTHER ==
[~2016-09-21] VITALS: Ht 160 cm; Wt 99.4 kg
[~2016-09-21 16:20] MED LIST changes: -ASPEC81 PO; -GLC500 PO; -INSDGIPEN SC; -JNV25 PO
[2016-09-21] MEDS ORDERED: SODIUM CHLORIDE 0.9% 1000ML 1,000 ML IV STA ×2 (17:13→17:55)
[2016-09-21] MEDS ORDERED: CALCIUM GLUCONATE 10% 10 ML VIAL IV STA (17:55)
[2016-09-21] MEDS ORDERED: NovoLIN-R INSULIN PER UNIT CHARGE IV STA (17:55)
[2016-09-21 17:56] LABS: BASO % 0.2 %; BASO ABS # 0.01 K/uL (0-0.2); COMPLETE YES; EOS % 1.1 %; HEMATOCRIT 40.3 % (42-52); IG% 0.2 %; LYMPH % 23.3 %; LYMPH ABS # 1.51 K/uL (1.2-3.4); MEAN CELL VOLUME 83.6 fL (80-100); MEAN CORPUSCULAR HEMOGLOBIN 28.6 pg (25-34); MEAN CORPUSCULAR HGB CONC 34.2 g/dl (32-36); MEAN PLATELET VOLUME 10.2 fL (7.4-10.4); MONO % 7.9 %; NEUT % 67.3 %; PLATELET COUNT 163 K/uL (130-400); RED BLOOD COUNT 4.82 M/uL (4.7-6.1); WHITE BLOOD COUNT 6.48 K/uL (4.8-10.8)
[2016-09-21 18:11] LABS: ARTERIAL BLD GAS O2 SATURATION 92.3 % (90-95); ARTERIAL BLOOD GAS BASE EXCESS 0.4 mEq/L (-9-1.8); ARTERIAL BLOOD GAS HCO3 24 mmol/L (19-24); ARTERIAL BLOOD GAS PO2 65 mm/Hg (80-95); ARTERIAL BLOOD GAS pH 7.44 (7.35-7.45)
[2016-09-21 18:12] LABS: ALLEN TEST POS (POS); O2 ADMINISTRATION ROOM AIR
--- NOTE | 2016-09-21 18:15 | DIAGNOSTIC IMAGING REPORT ---
CHEST ONE VIEW PORTABLE CLINICAL HISTORY: Cough. Hyperglycemia. COMPARISON STUDY: 01/02/2016 FINDINGS: The heart is borderline enlarged. There are postsurgical changes of a midline sternotomy. There is indistinctness of the right hemidiaphragm, possibly secondary to overlying soft tissue. A follow-up PA and lateral study is recommended to help exclude right basilar pathology. IMPRESSION: Indistinctness of the right hemidiaphragm. A follow-up PA and lateral study is recommended to help exclude right basilar pathology Electronically signed by: Matthew Gallo M.D. 09/21/2016 6:14 PM Dictated Date/Time: 09/21/2016 6:12 PM
[2016-09-21 18:21] LABS: ALKALINE PHOSPHATASE 129 U/L (45-117); ALT/SGPT 42 U/L (12-78); AST/SGOT 26 U/L (15-37); BLOOD UREA NITROGEN 31 mg/dl (7-18); BUN/CREATININE RATIO 26.2 (10-20); CALCIUM 9.2 mg/dl (8.5-10.1); CARBON DIOXIDE 28 mmol/L (21-32); CHLORIDE 98 mmol/L (98-107); GLUCOSE 683 mg/dl (70-99); POTASSIUM 5.2 mmol/L (3.5-5.1); SODIUM 133 mmol/L (136-145)
--- NOTE | 2016-09-21 18:34 | DIAGNOSTIC IMAGING REPORT ---
ULTRASOUND RIGHT UPPER QUADRANT ABDOMEN CLINICAL HISTORY: Hyperglycemia. Right upper quadrant abdominal pain. COMPARISON STUDY: Abdominal CT dated 06/18/2016. TECHNIQUE: Real-time, grayscale, and color flow sonography of the right upper quadrant of the abdomen was performed. Images are reviewed in the transverse and longitudinal planes. FINDINGS: Liver: The liver is enlarged and demonstrates heterogeneously increased echotexture consistent with hepatic steatosis. There is no intrahepatic biliary ductal dilatation. The main portal vein is patent. A 2 cm hepatic cyst is incidentally noted. Large calcifications in the left lobe of the liver are unchanged from previous. These are better assessed by CT on 06/18/2016. Gallbladder: The gallbladder is normal in appearance. No gallstones are identified. There is no gallbladder wall thickening or pericholecystic fluid. A sonographic Quiroz's sign is reportedly absent. The common bile duct measures up to 0.4 cm in diameter. Pancreas: Visualized portions of the pancreatic head and body are normal in appearance. Right kidney: Survey images of the right kidney demonstrate cortical atrophy. There is no hydronephrosis. Ascites: None. IMPRESSION: 1. No acute sonographic abnormality is identified in the right upper quadrant. No gallstones are seen. 2. Hepatomegaly and hepatic steatosis. Electronically signed by: Toro Escudero M.D. 09/21/2016 6:33 PM Dictated Date/Time: 09/21/2016 6:31 PM
[2016-09-21 18:35] LABS: BETA-HYDROXYBUTYRATE 13.35 mg/dL (0.2-2.81)
--- NOTE | 2016-09-21 19:29 | DIAGNOSTIC IMAGING REPORT ---
TWO VIEW CHEST CLINICAL HISTORY: Cough. FINDINGS: AP and lateral chest radiographs are compared to study performed earlier the same day 09/21/2016 and 01/02/2016. The AP view is degraded by patient rotation. The patient is status post midline sternotomy. The heart is enlarged and there is atherosclerotic calcification of the thoracic aorta. The pulmonary vasculature is noncongested. Chronic interstitial thickening is similar to previous. There is a small right pleural effusion with right basilar consolidation. There is no pneumothorax. The skeletal structures are osteopenic. Degenerative change is noted throughout the thoracic spine. IMPRESSION: 1. Cardiomegaly without radiographic evidence of congestive failure. 2. Small right pleural effusion with right basilar consolidation. This likely could represent atelectasis, pneumonia, and/or aspiration pneumonitis. Clinical correlation will be required and radiographic follow-up to resolution is recommended. Electronically signed by: Toro Escudero M.D. 09/21/2016 7:28 PM Dictated Date/Time: 09/21/2016 7:26 PM
[2016-09-21] MEDS ORDERED: GLC500 PO (20:01)
[2016-09-21] MEDS ORDERED: SODIUM CHLORIDE 0.45% 1000ML 1,000 ML IV SCH (20:25)
[2016-09-21] MEDS ORDERED: HHS GOAL RANGE 250-350 mg/dl ONE (20:30)
[2016-09-21] MEDS ORDERED: PHARMACY GLYCEMIC MGMT CONSULT PRN (20:30)
[2016-09-21] MEDS ORDERED: ONDANSETRON INJ 2 MG/ML 2 ML VIAL IV PRN (20:30)
--- NOTE | 2016-09-21 20:31 | EMERGENCY ROOM VISIT NOTE ---
History Report prepared by Mj: Francesca Suggs Under the Supervision of: Dr. Nico Baugh M.D. First contact with patient: 17:07 Chief Complaint: HYPERGLYCEMIA Stated Complaint: SUGAR 582,DEHYDRATED History of Present Illness The patient is an 86 year old male who presents to the Emergency Room with complaints of persistent polydipsia starting several days ago. The patient has been drinking lots of water for the past several days. He has also had a decreased appetite and fatigued. He went to see his PCP today who found that his blood sugar was 582. He was referred to the ED. He was prescribed Metformin , but he has not started taking it yet. He had some coughing yesterday. He denies any runny nose or other complaints. Source of History: patient, family Onset: several days ago Position: other (global) Quality: other (polydipsia) Timing: other (persistent) Associated Symptoms: + cough, + fatigue Note: Pt reports decreased appetite, hyperglycemia. Pt denies rhinorrhea. Review of Systems See HPI for pertinent positives & negatives. A total of 10 systems reviewed and were otherwise negative. 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 Social History Smoking Status: Former Smoker Marital Status: Occupation Status: retired Current/Historical Medications Scheduled Atenolol (Tenormin), 50 MG PO QAM Atorvastatin (Lipitor), 80 MG PO HS Cholecalciferol (Vitamin D3), 2 TAB PO QAM Digoxin (Digox), 1 TAB PO QAM Lisinopril (Zestril), 5 MG PO QAM Metformin HCl (Metformin HCl), 1 TAB PO BID Multivitamin (Multivitamin), 1 TAB PO QAM Ocuvite Preservision (Ocuvite Preservision), 1 TAB PO BID Allergies Coded Allergies: No Known Allergies (Unverified , 09/21/16) Physical Exam Vital Signs Date Time Temp Pulse Resp B/P (MAP) Pulse Ox O2 Delivery O2 Flow Rate FiO2 09/21/16 19:42 70 09/21/16 19:32 74 16 127/71 95 Room Air 09/21/16 18:41 70 16 123/74 93 Room Air 09/21/16 17:40 73 21 122/72 94 Room Air 09/21/16 16:24 36.9 62 22 133/76 96 Room Air Physical Exam GENERAL: Patient is a healthy-appearing well-nourished male HEAD: Normocephalic atraumatic EYES: Ocular movements intact pupils equal and react to light OROPHARYNX mucous membranes are moist no exudates present no erythema or edema present NECK: Supple no nuchal rigidity CHEST: Good equal expansion LUNGS: Clear and equal to auscultation CARDIAC: Grade 2/6 systolic murmur. ABDOMEN: Soft nontender no guarding BACK: No CVA tenderness EXTREMITIES: No pain upon palpation normal muscle strength in all groups no clubbing cyanosis or edema NEURO: Patient is following commands and answering questions appropriately. Alert and oriented x3 Cranial Nerves 2-12 grossly intact Medical Decision & Procedures ER Provider Diagnostic Interpretation: X-ray results as stated below per interpretation by me and the radiologist. Radiology results as stated below per my review and radiologist interpretation: CHEST ONE VIEW PORTABLE CLINICAL HISTORY: Cough. Hyperglycemia. COMPARISON STUDY: 01/02/2016 FINDINGS: The heart is borderline enlarged. There are postsurgical changes of a midline sternotomy. There is indistinctness of the right hemidiaphragm, possibly secondary to overlying soft tissue. A follow-up PA and lateral study is recommended to help exclude right basilar pathology. IMPRESSION: Indistinctness of the right hemidiaphragm. A follow-up PA and lateral study is recommended to help exclude right basilar pathology Electronically signed by: Matthew Gallo M.D. 09/21/2016 6:14 PM Dictated Date/Time: 09/21/2016 6:12 PM ULTRASOUND RIGHT UPPER QUADRANT ABDOMEN CLINICAL HISTORY: Hyperglycemia. Right upper quadrant abdominal pain. COMPARISON STUDY: Abdominal CT dated 06/18/2016. TECHNIQUE: Real-time, grayscale, and color flow sonography of the right upper quadrant of the abdomen was performed. Images are reviewed in the transverse and longitudinal planes. FINDINGS: Liver: The liver is enlarged and demonstrates heterogeneously increased echotexture consistent with hepatic steatosis. There is no intrahepatic biliary ductal dilatation. The main portal vein is patent. A 2 cm hepatic cyst is incidentally noted. Large calcifications in the left lobe of the liver are unchanged from previous. These are better assessed by CT on 06/18/2016. Gallbladder: The gallbladder is normal in appearance. No gallstones are identified. There is no gallbladder wall thickening or pericholecystic fluid. A sonographic Quiroz's sign is reportedly absent. The common bile duct measures up to 0.4 cm in diameter. Pancreas: Visualized portions of the pancreatic head and body are normal in appearance. Right kidney: Survey images of the right kidney demonstrate cortical atrophy. There is no hydronephrosis. Ascites: None. IMPRESSION: 1. No acute sonographic abnormality is identified in the right upper quadrant. No gallstones are seen. 2. Hepatomegaly and hepatic steatosis. Electronically signed by: Toro Escudero M.D. 09/21/2016 6:33 PM Dictated Date/Time: 09/21/2016 6:31 PM TWO VIEW CHEST CLINICAL HISTORY: Cough. FINDINGS: AP and lateral chest radiographs are compared to study performed earlier the same day 09/21/2016 and 01/02/2016. The AP view is degraded by patient rotation. The patient is status post midline sternotomy. The heart is enlarged and there is atherosclerotic calcification of the thoracic aorta. The pulmonary vasculature is noncongested. Chronic interstitial thickening is similar to previous. There is a small right pleural effusion with right basilar consolidation. There is no pneumothorax. The skeletal structures are osteopenic. Degenerative change is noted throughout the thoracic spine. IMPRESSION: 1. Cardiomegaly without radiographic evidence of congestive failure. 2. Small right pleural effusion with right basilar consolidation. This likely could represent atelectasis, pneumonia, and/or aspiration pneumonitis. Clinical correlation will be required and radiographic follow-up to resolution is recommended. Electronically signed by: Toro Escudero M.D. 09/21/2016 7:28 PM Dictated Date/Time: 09/21/2016 7:26 PM Laboratory Results 09/21/16 17:25 Red Blood Count 4.82, Mean Corpuscular Volume 83.6, Mean Corpuscular Hemoglobin 28.6, Mean Corpuscular Hemoglobin Concent 34.2, Mean Platelet Volume 10.2, Neutrophils (%) (Auto) 67.3, Lymphocytes (%) (Auto) 23.3, Monocytes (%) (Auto) 7.9, Eosinophils (%) (Auto) 1.1, Basophils (%) (Auto) 0.2, Neutrophils # (Auto) 4.37, Lymphocytes # (Auto) 1.51, Monocytes # (Auto) 0.51, Eosinophils # (Auto) 0.07, Basophils # (Auto) 0.01 Test 09/21/16 17:25 09/21/16 17:55 White Blood Count 6.48 K/uL (4.8-10.8) Red Blood Count 4.82 M/uL (4.7-6.1) Hemoglobin 13.8 g/dL (14.0-18.0) Hematocrit 40.3 % (42-52) Mean Corpuscular Volume 83.6 fL (80-100) Mean Corpuscular Hemoglobin 28.6 pg (25-34) Mean Corpuscular Hemoglobin Concent 34.2 g/dl (32-36) Platelet Count 163 K/uL (130-400) Mean Platelet Volume 10.2 fL (7.4-10.4) Neutrophils (%) (Auto) 67.3 % Lymphocytes (%) (Auto) 23.3 % Monocytes (%) (Auto) 7.9 % Eosinophils (%) (Auto) 1.1 % Basophils (%) (Auto) 0.2 % Neutrophils # (Auto) 4.37 K/uL (1.4-6.5) Lymphocytes # (Auto) 1.51 K/uL (1.2-3.4) Monocytes # (Auto) 0.51 K/uL (0.11-0.59) Eosinophils # (Auto) 0.07 K/uL (0-0.5) Basophils # (Auto) 0.01 K/uL (0-0.2) RDW Standard Deviation 45.1 fL (36.4-46.3) RDW Coefficient of Variation 14.8 % (11.5-14.5) Immature Granulocyte % (Auto) 0.2 % Immature Granulocyte # (Auto) 0.01 K/uL (0.00-0.02) Prothrombin Time 10.3 SECONDS (9.0-12.0) Prothromb Time International Ratio 1.0 (0.9-1.1) Activated Partial Thromboplast Time 25.2 SECONDS (21.0-31.0) Partial Thromboplastin Ratio 1.0 Osmolality 324 mOsm/kg (280-300) Total Bilirubin 0.8 mg/dl (0.2-1) Direct Bilirubin 0.2 mg/dl (0-0.2) Aspartate Amino Transf (AST/SGOT) 26 U/L (15-37) Alanine Aminotransferase (ALT/SGPT) 42 U/L (12-78) Alkaline Phosphatase 129 U/L (45-117) Total Protein 7.2 gm/dl (6.4-8.2) Albumin 3.5 gm/dl (3.4-5.0) Lipase 371 U/L (73-393) Arterial Blood pH 7.44 (7.35-7.45) Arterial Blood Partial Pressure CO2 36 mmHg (35-46) Arterial Blood Partial Pressure O2 65 mm/Hg (80-95) Arterial Blood HCO3 24 mmol/L (19-24) Arterial Blood Oxygen Saturation 92.3 % (90-95) Arterial Blood Base Excess 0.4 mEq/L (-9-1.8) Arterial Blood Gas Delivery ROOM AIR Buzz Test POS (POS) Labs reviewed by ED physician. Medications Administered Medications (Trade) Dose Ordered Sig/Emerald Route Start Time Stop Time Status Last Admin Dose Admin Sodium Chloride 1,000 ml @ 999 mls/hr Q1H1M STAT IV 09/21/16 17:13 09/21/16 18:13 DC 09/21/16 17:38 999 MLS/HR Insulin Human Regular (novoLIN-R U-100 PER UNIT) 10 units NOW STAT IV 09/21/16 17:55 09/21/16 18:00 DC 09/21/16 18:47 10 UNITS Calcium Gluconate (Calcium Gluconate 10%) 1,000 mg NOW STAT IV 09/21/16 17:55 09/21/16 18:00 DC 09/21/16 18:47 1,000 MG Sodium Chloride 1,000 ml @ 999 mls/hr Q1H1M STAT IV 09/21/16 17:55 09/21/16 18:55 DC 09/21/16 19:11 999 MLS/HR Sodium Chloride 1,000 ml @ 200 mls/hr Q5H IV 09/21/16 20:25 09/22/16 00:32 DC 09/21/16 21:53 200 MLS/HR ECG Indication: other (hyperglycemia) Rate (beats per minute): 69 Rhythm: normal sinus Findings: RBBB, no acute ischemic change, no ectopy ED Course 1708: Past medical records reviewed. The patient was evaluated in room B6. A complete history and physical examination was performed. 1713: NSS 1000 ml @ 999 mls/hr IV. 1755: NSS 1000 ml @ 999 mls/hr IV, Calcium Gluconate 1000 mg IV, Insulin Human Regular 10 units IV. 1835: I discussed the patient's case with Astrid Maynard hospitalist, he has agreed to evaluate the patient for further management and care. Medical Decision Prior records/ancillary studies reviewed and summarized above. Nursing notes reviewed. Additional history obtained from family. The patient's history was concerning for fatigue. Differential diagnosis: Etiologies such as metabolic, infection, hypo/hyperglycemia, electrolyte abnormalities, cardiac sources, intracerebral event, toxicologic, neurologic, as well as others were entertained. Medication Reconciliation: I attest that I have personally reviewed the patient' s current medication list Blood Pressure Screening: Patient was found to have an elevated blood pressure and was referred to their primary care doctor for recheck and further treatment This is an 86-year-old male who presents emergency department complaining of being thirsty. The patient with his primary care physician's office was found to have a very elevated blood sugar. This reason the patient was given a 2 L bolus of fluid in the emergency department. The patient appears to have HHS. and was given insulin as well as calcium to bring down his potassium. The patient does not appear to have any changes was EKG. He was started on insulin in the emergency department. I did discuss the case with the hospitalist service who agreed to admit the patient. Patient family were in agreement with the treatment plan. Consults Time Called: 1827 Consulting Physician: [facility] Returned Call: [phone] I discussed the patient's case with him, he has agreed to evaluate the patient for further management and care. Impression Primary Impression: Hyperglycemia Scribe Attestation The scribe's documentation has been prepared under my direction and personally reviewed by me in its entirety. I confirm that the note above accurately reflects all work, treatment, procedures, and medical decision making performed by me. Departure Information Dispostion Being Evaluated By Hospitalist Referrals Haja Ugalde M.D. (PCP) Patient Instructions My [facility]
[2016-09-21] MEDS ORDERED: INSULIN IV INFUSION PROTOCOL SCH (20:52)
[2016-09-21] MEDS ORDERED: PENDING 1/2NSS+20mEq KCL IVF SCH (21:00)
[2016-09-21] MEDS ORDERED: PENDING D5 1/2NS+20mEq KCL IVF SCH (21:00)
--- NOTE | 2016-09-21 21:00 | Pharmacy Progress Note ---
Glycemic Control Intl Consult Date of Service Sep 21, 2016. Scope Glycemic Pharmacist consulted by Dr Madrigal on 09/21/16 for glycemic control and to write orders per [facility] inpatient glycemic control protocol Objective Accuchecks BSG (last 24hrs): Test 09/21/16 17:07 09/21/16 17:25 09/21/16 19:53 Bedside Glucose > 600 mg/dl (70-99) 446 mg/dl (70-99) Random Glucose 683 mg/dl (70-99) Laboratory Data (last 24hrs) Test 09/21/16 17:25 Anion Gap 7.0 mmol/L BUN/Creatinine Ratio 26.2 Blood Urea Nitrogen 31 mg/dl Creatinine 1.20 mg/dl Potassium Level 5.2 mmol/L Sodium Level 133 mmol/L White Blood Count 6.48 K/uL Red Blood Count 4.82 M/uL Hemoglobin 13.8 g/dL Hematocrit 40.3 % Mean Corpuscular Volume 83.6 fL Mean Corpuscular Hemoglobin 28.6 pg Mean Corpuscular Hemoglobin Concent 34.2 g/dl Platelet Count 163 K/uL Mean Platelet Volume 10.2 fL Neutrophils (%) (Auto) 67.3 % Lymphocytes (%) (Auto) 23.3 % Monocytes (%) (Auto) 7.9 % Eosinophils (%) (Auto) 1.1 % Basophils (%) (Auto) 0.2 % Neutrophils # (Auto) 4.37 K/uL Lymphocytes # (Auto) 1.51 K/uL Monocytes # (Auto) 0.51 K/uL Eosinophils # (Auto) 0.07 K/uL Basophils # (Auto) 0.01 K/uL HbA1c Test 09/21/16 17:25 Recent Pertinent Medications Outpatient Anti-diabetic Regimen: * metformin 500 mg PO BID (just started) Risk Factors for Insulin Resistance: * Diet: NPO Assessment & Plan ASSESSMENT: * ADA & AACE recommend a goal blood sugar range 140-180 mg/dl for the majority of critically ill & non-critically ill patients. However, more stringent targets may be selected in individual cases. For cases of HHS, a goal range of 250-350 mg/dL will be utilized as standard of care is hydration. * Mr Ferguson is an 86 y/o M admitted with hyperglycemia. He went to his PCP after a several day history of polyuria and polydipsia. He was given metformin and referred to the ER for blood sugar over 500 mg/dL. * As standard of care for HHS, an insulin infusion with higher goal range will be utilized. Once patient stabilizes and receives adequate hydration, he will be transitioned off of the insulin infusion. PLAN FOR INPATIENT GLYCEMIC CONTROL: * Starting IV insulin infusion per moderate stress protocol * Goal Range 250 - 350 mg/dl * In the critical care setting, continuous IV insulin infusion has been shown to be the best method for achieving glycemic targets. * Holding outpatient oral diabetes medications * Please note that the plan above was derived based on current level of insulin resistance and hospital stress. These recommendations are appropriate for inpatient admission only. Plan of care upon discharge will need to be reassessed to avoid potential outpatient hypo/hyperglycemia. Thank you.
[2016-09-21] MEDS ORDERED: MODERATE STRESS LEVEL STA (21:01)
[2016-09-21 21:14] LABS: URINE APPEARANCE CLEAR (CLEAR); URINE BILIRUBIN NEG (NEG); URINE COLOR YELLOW; URINE NITRITE NEG (NEG); URINE SPECIFIC GRAVITY 1.037 (1.000-1.030); UROBILINOGEN NEG (NEG)
[2016-09-21 21:22] LABS: MANUAL MICROSCOPIC REQUIRED? NO; REVIEW REQ? NO
[2016-09-21 21:40] VITALS: BP 162/83; PULSE 72; TEMP 36.9; O2SAT 94; BMI 38.4
--- NOTE | 2016-09-21 21:44 | History and Physical ---
History & Physical Date & Time of Service: Sep 21, 2016 at 21:09 Chief Complaint: Sugar 582,Dehydrated Primary Care Physician: Haja Ugalde M.D. 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 He states that he has been drinking a lot of water , but is always having to get up and go to the bathroom right after. In June 2016, he had a removal of a L ureteral tumor, but states that he's had no issues with urination until about a month ago. Was seen today (September 21) at primary care physician's office - urinalysis suggested ketonuria/glucosuria; he was given metformin and blood work was obtained. When blood work revealed BSGs > 600, he was told to come to the ER. Upon presentation, he had BSGs >600, serum osm > 300, normal anion gap, normal bicarb. He is extremely hard of hearing, but states he has no other symptoms besides the polyuria and polydipsia. As per his , she states that about 2 weeks ago he developed a few day history of diarrhea, which resolved on its own. He has been weaker and slightly confused since then. Currently, laying in bed in no distress. Past Medical/Surgical History Medical Problems: (1) Heart disease Status: Chronic (2) Hypercholesteremia Status: Chronic (3) Hypertension Status: Chronic Social History Smoking Status: Former Smoker Marital Status: Occupational Status: retired Immunizations History of Influenza Vaccine: Yes History of Tetanus Vaccine?: Unknown History of Pneumococcal: Yes History of Hepatitis B Vaccine: No Multi-Drug Resistant Organisms History of MDRO: No Allergies Coded Allergies: No Known Allergies (Unverified , 09/21/16) Home Medications Scheduled Atenolol (Tenormin), 50 MG PO QAM Atorvastatin (Lipitor), 80 MG PO HS Cholecalciferol (Vitamin D3), 2 TAB PO QAM Digoxin (Digox), 1 TAB PO QAM Lisinopril (Zestril), 5 MG PO QAM Metformin HCl (Metformin HCl), 1 TAB PO BID Multivitamin (Multivitamin), 1 TAB PO QAM Ocuvite Preservision (Ocuvite Preservision), 1 TAB PO BID Review of Systems Constitutional: + weakness, + fatigue, No fever, No chills, No sweats Eyes: No worsening of vision ENT: + hearing loss (chronic) Respiratory: No cough, No sputum, No wheezing, No shortness of breath, No dyspnea on exertion, No dyspnea at rest Cardiovascular: No chest pain, No edema, No palpitations Abdomen: No pain, No nausea, No vomiting, No diarrhea, No constipation, No GI bleeding Musculoskeletal: No joint pain Genitourinary - Male: + urinary frequency, No hematuria, No dysuria, No urinary urgency, No urinary hesitancy, No urinary retention, No urinary incontinence Endocrine: + fatigue, + excessive thirst, + excessive urination Hematologic / Lymphatic: No abnormal bleeding/bruising Integumentary: No rash Allergic / Immunologic: No environmental allergies, No seasonal allergies Physical Exam Vital Signs Date Time Temp Pulse Resp B/P (MAP) Pulse Ox O2 Delivery O2 Flow Rate FiO2 09/21/16 19:42 70 09/21/16 19:32 74 16 127/71 95 Room Air 09/21/16 18:41 70 16 123/74 93 Room Air 09/21/16 17:40 73 21 122/72 94 Room Air 09/21/16 16:24 36.9 62 22 133/76 96 Room Air General Appearance: no apparent distress ENT: + pertinent finding (extremely hard of hearing, hearing aids in place) Respiratory/Chest: chest non-tender, lungs clear, normal breath sounds, no respiratory distress, no accessory muscle use Cardiovascular: regular rate, rhythm, no edema, + systolic murmur (best heard at second left intercostal space) Abdomen/GI: normal bowel sounds, non tender, soft Extremities/Musculoskelatal: normal inspection, no calf tenderness, normal capillary refill, no pedal edema, normal range of motion 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4-10.4 fL Neutrophils (%) (Auto) 67.3 % Lymphocytes (%) (Auto) 23.3 % Monocytes (%) (Auto) 7.9 % Eosinophils (%) (Auto) 1.1 % Basophils (%) (Auto) 0.2 % Neutrophils # (Auto) 4.37 1.4-6.5 K/uL Lymphocytes # (Auto) 1.51 1.2-3.4 K/uL Monocytes # (Auto) 0.51 0.11-0.59 K/uL Eosinophils # (Auto) 0.07 0-0.5 K/uL Basophils # (Auto) 0.01 0-0.2 K/uL RDW Standard Deviation 45.1 36.4-46.3 fL RDW Coefficient of Variation 14.8 11.5-14.5 % Immature Granulocyte % (Auto) 0.2 % Immature Granulocyte # (Auto) 0.01 0.00-0.02 K/uL Sodium Level 133 136-145 mmol/L Potassium Level 5.2 3.5-5.1 mmol/L Chloride Level 98 98-107 mmol/L Carbon Dioxide Level 28 21-32 mmol/L Anion Gap 7.0 3-11 mmol/L Blood Urea Nitrogen 31 7-18 mg/dl Creatinine 1.20 0.60-1.40 mg/dl Estimated GFR () 62.6 Estimated GFR (Non- 54.0 BUN/Creatinine Ratio 26.2 10-20 Random Glucose 683 70-99 mg/dl Osmolality 324 280-300 mOsm/kg Calcium Level 9.2 8.5-10.1 mg/dl Total Bilirubin 0.8 0.2-1 mg/dl Direct Bilirubin 0.2 0-0.2 mg/dl Aspartate Amino Transf (AST/SGOT) 26 15-37 U/L Alanine Aminotransferase (ALT/SGPT) 42 12-78 U/L Alkaline Phosphatase 129 45-117 U/L Total Protein 7.2 6.4-8.2 gm/dl Albumin 3.5 3.4-5.0 gm/dl Lipase 371 73-393 U/L Beta-Hydroxybutyric Acid 13.35 0.2-2.81 mg/dL Arterial Blood pH 7.44 7.35-7.45 Arterial Blood Partial Pressure CO2 36 35-46 mmHg Arterial Blood Partial Pressure O2 65 80-95 mm/Hg Arterial Blood HCO3 24 19-24 mmol/L Arterial Blood Oxygen Saturation 92.3 90-95 % Arterial Blood Base Excess 0.4 -9-1.8 mEq/L Arterial Blood Gas Delivery ROOM AIR Buzz Test POS POS Test 09/21/16 20:41 Range/Units Diagnostic Radiology TWO VIEW CHEST CLINICAL HISTORY: Cough. FINDINGS: AP and lateral chest radiographs are compared to study performed earlier the same day 09/21/2016 and 01/02/2016. The AP view is degraded by patient rotation. The patient is status post midline sternotomy. The heart is enlarged and there is atherosclerotic calcification of the thoracic aorta. The pulmonary vasculature is noncongested. Chronic interstitial thickening is similar to previous. There is a small right pleural effusion with right basilar consolidation. There is no pneumothorax. The skeletal structures are osteopenic. Degenerative change is noted throughout the thoracic spine. IMPRESSION: 1. Cardiomegaly without radiographic evidence of congestive failure. 2. Small right pleural effusion with right basilar consolidation. This likely could represent atelectasis, pneumonia, and/or aspiration pneumonitis. Clinical correlation will be required and radiographic follow-up to resolution is recommended. ULTRASOUND RIGHT UPPER QUADRANT ABDOMEN CLINICAL HISTORY: Hyperglycemia. Right upper quadrant abdominal pain. COMPARISON STUDY: Abdominal CT dated 06/18/2016. TECHNIQUE: Real-time, grayscale, and color flow sonography of the right upper quadrant of the abdomen was performed. Images are reviewed in the transverse and longitudinal planes. FINDINGS: Liver: The liver is enlarged and demonstrates heterogeneously increased echotexture consistent with hepatic steatosis. There is no intrahepatic biliary ductal dilatation. The main portal vein is patent. A 2 cm hepatic cyst is incidentally noted. Large calcifications in the left lobe of the liver are unchanged from previous. These are better assessed by CT on 06/18/2016. Gallbladder: The gallbladder is normal in appearance. No gallstones are identified. There is no gallbladder wall thickening or pericholecystic fluid. A sonographic Quiroz's sign is reportedly absent. The common bile duct measures up to 0.4 cm in diameter. Pancreas: Visualized portions of the pancreatic head and body are normal in appearance. Right kidney: Survey images of the right kidney demonstrate cortical atrophy. There is no hydronephrosis. Ascites: None. IMPRESSION: 1. No acute sonographic abnormality is identified in the right upper quadrant. No gallstones are seen. 2. Hepatomegaly and hepatic steatosis. EKG Normal sinus rhythm Right bundle branch block Left anterior fascicular block Bifascicular block Abnormal ECG Impression Assessment and Plan This is an 86 year old male with a PMH of CAD s/p CABG x5, nonrheumatic aortic stenosis, osteoarthritis, BPH, ureteral tumor s/p resection presents with polydipsia and polyuria found to have hyperosmolar hyperglycemia Hyperosmolar Hyperglycemia State BSGs > 600, Osm > 300 on admission, glucosuria, ketonuria no anion gap probably worsened by recent viral gastroenteritis/diarrhea picture significantly dehydrated on admission given 2L bolus in the ER will start 1/2NS + 20meq KCl @ 200mL/hr check electrolytes, PRP, Mag, Phos [id number] start insulin drip pharmacy glycemic control consult check Ha1c (last Ha1c in June 2016 was 6.9%) CAD s/p CABG restart aspirin continue b-iván, high intensity statin monitor in tele recheck EKG in AM for comparison Aortic Stenosis continue Digoxin DVT ppx Lovenox FULL CODE VTE Prophylaxis VTE Risk Assessment Done? Y/N: Yes Risk Level: High
[2016-09-21] MEDS ORDERED: GLUCAGON FOR INJ 1 MG VIAL SQ PRN (21:45)
[2016-09-21] MEDS ORDERED: INSULIN REGULAR IV SCH (21:45)
[2016-09-21] MEDS ORDERED: DEXTROSE 50% 50 ML SYR IV PRN (21:45)
[2016-09-21] MEDS ORDERED: GLUCOSE 40% GEL 15 GM TUBE PO PRN (21:45)
[2016-09-21] MEDS ORDERED: GLUCOSE 10 TABS/TUBE PO PRN (21:45)
[2016-09-21] MEDS ORDERED: PATIENT'S HEIGHT AND/OR WEIGHT NEEDED SCH (22:00)
[2016-09-21] MEDS: INSULIN REGULAR 250 UNITS in SODIUM CHLORIDE 0.9% 250ML 250 ML IV SCH (22:00)
[2016-09-21 22:18] LABS: PROTHROMBIN TIME (PATIENT) 10.3 SECONDS (9.0-12.0)
[2016-09-21] MEDS: ATORVASTATIN 40 MG TAB PO SCH (22:37)
[2016-09-21] MEDS: INSULIN ASPART 100 UNITS/ML 3 ML PEN SC SCH (22:45)
[2016-09-21 23:26] VITALS: BP 110/64; PULSE 68; TEMP 36.5; O2SAT 96
[2016-09-22] VITALS (8 sets, daily range): BP systolic 102–164; BP diastolic 58–88; PULSE 56–71; TEMP 36.2–37.1; O2SAT 94–98
[2016-09-22 00:11] LABS: BUN/CREATININE RATIO 28.5 (10-20); CREATININE 0.95 mg/dl (0.60-1.40); MAGNESIUM 2.1 mg/dl (1.8-2.4); PHOSPHORUS 2.7 mg/dl (2.5-4.9); POTASSIUM 4.6 mmol/L (3.5-5.1)
[2016-09-22 00:25] LABS: BETA-HYDROXYBUTYRATE 7.52 mg/dL (0.2-2.81)
[2016-09-22] MEDS ORDERED: SODIUM CHLOR 0.45% + 20MEQ KCL 1,000 ML IV SCH (00:45)
[2016-09-22] MEDS ORDERED: NURSING VERBAL MED ORDER ONE ×2 (01:15→16:30)
[2016-09-22] MEDS: D5W AND 1/2NSS + 20MEQ KCL 1,000 ML IV SCH ×2 (01:28→06:35)
[2016-09-22 04:50] LABS: CALCIUM 8.3 mg/dl (8.5-10.1); CREATININE 0.76 mg/dl (0.60-1.40); PHOSPHORUS 2.3 mg/dl (2.5-4.9); POTASSIUM 3.8 mmol/L (3.5-5.1)
[2016-09-22 07:57] LABS: ESTIMATED AVERAGE GLUCOSE 289 mg/dl; HA1C FLAG Normal (Normal)
[2016-09-22] MEDS: INSULIN ASPART 100 UNITS/ML 3 ML PEN SC SCH ×5 (08:30→21:00)
[2016-09-22] MEDS ORDERED: SITAGLIPTIN 25 MG TAB PO SCH (09:00)
[2016-09-22] MEDS: ENOXAPARIN 40 MG/0.4 ML SYR SC SCH (09:08)
[2016-09-22] MEDS: ASPIRIN 81 MG ECTAB PO SCH (09:08)
[2016-09-22] MEDS: DIGOXIN 0.25 MG TAB PO SCH (09:10)
[2016-09-22] MEDS: LISINOPRIL 5 MG TAB PO SCH (09:11)
[2016-09-22 10:02] LABS: BLOOD UREA NITROGEN 21 mg/dl (7-18); BUN/CREATININE RATIO 24.7 (10-20); CALCIUM 8.8 mg/dl (8.5-10.1); CARBON DIOXIDE 27 mmol/L (21-32); CHLORIDE 108 mmol/L (98-107); CREATININE 0.86 mg/dl (0.60-1.40); GLUCOSE 255 mg/dl (70-99); PHOSPHORUS 2.3 mg/dl (2.5-4.9); SODIUM 141 mmol/L (136-145)
[2016-09-22] MEDS ORDERED: INSULIN GLARGINE SOLOSTAR 100 UNITS/ML 3 ML PEN SC ONE (11:00)
[2016-09-22 11:26] LABS: MAGNESIUM 1.9 mg/dl (1.8-2.4); POTASSIUM 3.7 mmol/L (3.5-5.1)
[2016-09-22] MEDS: INSULIN REGULAR 250 UNITS in SODIUM CHLORIDE 0.9% 250ML 250 ML IV SCH (11:49)
--- NOTE | 2016-09-22 14:53 | Progress Note ---
Internal Med Progress Note Date of Service: Sep 22, 2016. Provider Documentation: SUBJECTIVE: Patient is lying in his bed in no apparent distress. Is hard to hear but can answer y simple questions. Denies any chest pain/pressure or SOB. Feels stronger than when he came in. OBJECTIVE: Vital Signs-as noted below Examination: General Appearance: Alert/Awake lying in his bed in no apparent distress ENT: Extremely hard of hearing. Ears, Nose & Throat are normal looking. Respiratory/Chest: chest non-tender, lungs clear, normal breath sounds, no respiratory distress, no accessory muscle use Cardiovascular: regular rate, rhythm, no edema, + systolic murmur which is best heard at second left intercostal space. 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 ASSESSMENT & PLAN: 86 year old male with a PMH of CAD s/p CABG x5, nonrheumatic aortic stenosis, osteoarthritis, BPH, ureteral tumor s/p resection presents with polydipsia and polyuria found to have hyperosmolar hyperglycemia Hyperosmolar Hyperglycemia State: BSGs > 600, Osm > 300 on admission, glucosuria , ketonuria & no anion gap Likely worsened by recent viral gastroenteritis/diarrhea picture. Was significantly dehydrated on admission. Clinically improving. -Received fluid bolus in ER and continued IVF -Monitoring electrolytes closely -Started Januvia 50 mg daily -Discussed with Pharmacist and will start Lantus. -Pharmacy glycemic control consult -Hba1c is 11.7 .(last Ha1c in June 2016 was 6.9%) -[employer] consult for diabetic education History CAD s/p CABG: No acute cardiac issue. -Restarted aspirin -Continue b-iván, high intensity statin -Continue Digoxin Hypertension: Monitoring BP closely -Continue Lisinopril 5 mg daily under parameters Hypercholesterolemia: Continue Statin. History Aortic Stenosis DVT Prophylaxis: Sq Lovenox. Code Status: FULL CODE Disposition: Discharge once is clinically stable.So far he had been living independently. Has macular degeneration so it will be challenging how he will be able to take Insulin. Discussed with his daughter in detail. Vital Signs: Date Time Temp Pulse Resp B/P (MAP) Pulse Ox O2 Delivery O2 Flow Rate FiO2 09/22/16 12:00 Room Air 09/22/16 11:07 36.7 56 20 126/70 (88) 94 Room Air 09/22/16 09:10 62 09/22/16 08:00 Room Air 09/22/16 07:11 37.1 61 20 164/88 (113) 95 Room Air 09/22/16 07:00 36.7 67 20 116/67 (83) 96 Room Air 09/22/16 04:00 Room Air 09/22/16 03:11 36.7 71 18 120/63 (82) 96 Room Air 09/22/16 00:01 Room Air 09/21/16 23:26 36.5 68 18 110/64 (79) 96 Room Air 09/21/16 21:40 36.9 72 18 162/83 94 Room Air 09/21/16 21:09 72 18 101/54 95 09/21/16 19:42 70 09/21/16 19:32 74 16 127/71 95 Room Air 09/21/16 18:41 70 16 123/74 93 Room Air 09/21/16 17:40 73 21 122/72 94 Room Air 09/21/16 16:24 36.9 62 22 133/76 96 Room Air Lab Results: Results Past 24 Hours Test 09/21/16 17:07 09/21/16 17:25 09/21/16 17:55 09/21/16 19:53 Range/Units Bedside Glucose > 600 446 70-99 mg/dl White Blood Count 6.48 4.8-10.8 K/uL Red Blood Count 4.82 4.7-6.1 M/uL Hemoglobin 13.8 14.0-18.0 g/dL Hematocrit 40.3 42-52 % Mean Corpuscular Volume 83.6 80-100 fL Mean Corpuscular Hemoglobin 28.6 25-34 pg Mean Corpuscular Hemoglobin Concent 34.2 32-36 g/dl Platelet Count 163 130-400 K/uL Mean Platelet Volume 10.2 7.4-10.4 fL Neutrophils (%) (Auto) 67.3 % Lymphocytes (%) (Auto) 23.3 % Monocytes (%) (Auto) 7.9 % Eosinophils (%) (Auto) 1.1 % Basophils (%) (Auto) 0.2 % Neutrophils # (Auto) 4.37 1.4-6.5 K/uL Lymphocytes # (Auto) 1.51 1.2-3.4 K/uL Monocytes # (Auto) 0.51 0.11-0.59 K/uL Eosinophils # (Auto) 0.07 0-0.5 K/uL Basophils # (Auto) 0.01 0-0.2 K/uL RDW Standard Deviation 45.1 36.4-46.3 fL RDW Coefficient of Variation 14.8 11.5-14.5 % Immature Granulocyte % (Auto) 0.2 % Immature Granulocyte # (Auto) 0.01 0.00-0.02 K/uL Prothrombin Time 10.3 9.0-12.0 SECONDS Prothromb Time International Ratio 1.0 0.9-1.1 Activated Partial Thromboplast Time 25.2 21.0-31.0 SECONDS Partial Thromboplastin Ratio 1.0 Sodium Level 133 136-145 mmol/L Potassium Level 5.2 3.5-5.1 mmol/L Chloride Level 98 98-107 mmol/L Carbon Dioxide Level 28 21-32 mmol/L Anion Gap 7.0 3-11 mmol/L Blood Urea Nitrogen 31 7-18 mg/dl Creatinine 1.20 0.60-1.40 mg/dl Estimated GFR () 62.6 Estimated GFR (Non- 54.0 BUN/Creatinine Ratio 26.2 10-20 Random Glucose 683 70-99 mg/dl Estimated Average Glucose 289 mg/dl Hemoglobin A1c 11.7 4.5-5.6 % Osmolality 324 280-300 mOsm/kg Calcium Level 9.2 8.5-10.1 mg/dl Total Bilirubin 0.8 0.2-1 mg/dl Direct Bilirubin 0.2 0-0.2 mg/dl Aspartate Amino Transf (AST/SGOT) 26 15-37 U/L Alanine Aminotransferase (ALT/SGPT) 42 12-78 U/L Alkaline Phosphatase 129 45-117 U/L Total Protein 7.2 6.4-8.2 gm/dl Albumin 3.5 3.4-5.0 gm/dl Lipase 371 73-393 U/L Beta-Hydroxybutyric Acid 13.35 0.2-2.81 mg/dL Arterial Blood pH 7.44 7.35-7.45 Arterial Blood Partial Pressure CO2 36 35-46 mmHg Arterial Blood Partial Pressure O2 65 80-95 mm/Hg Arterial Blood HCO3 24 19-24 mmol/L Arterial Blood Oxygen Saturation 92.3 90-95 % Arterial Blood Base Excess 0.4 -9-1.8 mEq/L Arterial Blood Gas Delivery ROOM AIR Buzz Test POS POS Test 09/21/16 20:41 09/21/16 21:58 09/21/16 22:58 09/21/16 23:29 Range/Units Urine Color YELLOW Urine Appearance CLEAR CLEAR Urine pH 5.0 4.5-7.5 Urine Specific [place] 1.037 1.000-1.030 Urine Protein NEG NEG Urine Glucose (UA) 3+ NEG Urine Ketones 1+ NEG Urine Occult Blood NEG NEG Urine Nitrite NEG NEG Urine Bilirubin NEG NEG Urine Urobilinogen NEG NEG Urine Leukocyte Esterase SMALL NEG Urine WBC (Auto) 10-30 0-5 /hpf Urine RBC (Auto) 0-4 0-4 /hpf Urine Hyaline Casts (Auto) 1-5 0-5 /lpf Urine Epithelial Cells (Auto) 10-20 0-5 /lpf Urine Bacteria (Auto) NEG NEG Bedside Glucose 388 351 70-99 mg/dl Venous Blood pH 7.39 7.36-7.41 Sodium Level 143 136-145 mmol/L Potassium Level 4.6 3.5-5.1 mmol/L Chloride Level 109 98-107 mmol/L Carbon Dioxide Level 29 21-32 mmol/L Anion Gap 5.0 3-11 mmol/L Blood Urea Nitrogen 27 7-18 mg/dl Creatinine 0.95 0.60-1.40 mg/dl Est Creatinine Clear Calc Drug Dose 56.9 ml/min Estimated GFR () 83.1 Estimated GFR (Non- 71.7 BUN/Creatinine Ratio 28.5 10-20 Random Glucose 310 70-99 mg/dl Calcium Level 9.0 8.5-10.1 mg/dl Phosphorus Level 2.7 2.5-4.9 mg/dl Magnesium Level 2.1 1.8-2.4 mg/dl Beta-Hydroxybutyric Acid 7.52 0.2-2.81 mg/dL Test 09/21/16 23:59 09/22/16 01:00 09/22/16 02:57 09/22/16 04:16 Range/Units Bedside Glucose 326 281 318 70-99 mg/dl Venous Blood pH 7.42 7.36-7.41 Sodium Level 142 136-145 mmol/L Potassium Level 3.8 3.5-5.1 mmol/L Chloride Level 110 98-107 mmol/L Carbon Dioxide Level 30 21-32 mmol/L Anion Gap 2.0 3-11 mmol/L Blood Urea Nitrogen 24 7-18 mg/dl Creatinine 0.76 0.60-1.40 mg/dl Est Creatinine Clear Calc Drug Dose 71.1 ml/min Estimated GFR () 95.1 Estimated GFR (Non- 82.0 BUN/Creatinine Ratio 31.0 10-20 Random Glucose 279 70-99 mg/dl Calcium Level 8.3 8.5-10.1 mg/dl Phosphorus Level 2.3 2.5-4.9 mg/dl Magnesium Level 2.0 1.8-2.4 mg/dl Test 09/22/16 04:56 09/22/16 07:02 09/22/16 09:04 09/22/16 10:23 Range/Units Bedside Glucose 286 285 70-99 mg/dl Sodium Level 141 136-145 mmol/L Potassium Level 3.7 3.5-5.1 mmol/L Chloride Level 108 98-107 mmol/L Carbon Dioxide Level 27 21-32 mmol/L Anion Gap 6.0 3-11 mmol/L Blood Urea Nitrogen 21 7-18 mg/dl Creatinine 0.86 0.60-1.40 mg/dl Est Creatinine Clear Calc Drug Dose 63.2 ml/min Estimated GFR () 90.4 Estimated GFR (Non- 78.0 BUN/Creatinine Ratio 24.7 10-20 Random Glucose 255 70-99 mg/dl Calcium Level 8.8 8.5-10.1 mg/dl Phosphorus Level 2.3 2.5-4.9 mg/dl Magnesium Level 1.9 1.8-2.4 mg/dl Venous Blood pH 7.41 7.36-7.41 Test 09/22/16 11:01 Range/Units Bedside Glucose 221 70-99 mg/dl
--- NOTE | 2016-09-22 15:00 | Pharmacy Progress Note ---
Glycemic Control Progress Note Date of Service Sep 22, 2016. Scope Glycemic Pharmacist consulted for glycemic control to write orders per [facility] inpatient glycemic control protocol. Objective Accuchecks BSG (last 24hrs): Test 09/21/16 17:07 09/21/16 17:25 09/21/16 19:53 09/21/16 21:58 Bedside Glucose > 600 mg/dl (70-99) 446 mg/dl (70-99) 388 mg/dl (70-99) Random Glucose 683 mg/dl (70-99) Test 09/21/16 22:58 09/21/16 23:29 09/21/16 23:59 09/22/16 01:00 Bedside Glucose 351 mg/dl (70-99) 326 mg/dl (70-99) 281 mg/dl (70-99) Random Glucose 310 mg/dl (70-99) Test 09/22/16 02:57 09/22/16 04:16 09/22/16 04:56 09/22/16 07:02 Bedside Glucose 318 mg/dl (70-99) 286 mg/dl (70-99) 285 mg/dl (70-99) Random Glucose 279 mg/dl (70-99) Test 09/22/16 09:04 09/22/16 11:01 Random Glucose 255 mg/dl (70-99) Bedside Glucose 221 mg/dl (70-99) HbA1c: Test 09/21/16 17:25 Hemoglobin A1c 11.7 % (4.5-5.6) H Recent Pertinent Medications The patient is currently receiving: * IV insulin drip per protocol for [facility] Outpatient Anti-Diabetic Meds Oral Agents * Metformin 500 mg PO BID - this is new med for patient Assessment & Plan ASSESSMENT: * See progress note from 09/21 for more background info, in short: * Pt was started on IV insulin drip per protocol for [facility] - new diagnosis of T2DM * Insulin drip is currently infusing at 2.5 units per hour (pt was NPO for most of this period) * Patient was re-hydrated and fluids have since been discontinued, oral diet has been resumed * BSGs ranging 221 - 683 mg/dl over the past 24hrs * Per discussion with Dr. Walter, HHS has resolved and patient can be transitioned to basal/bolus regimen * Changes needed to insulin regimen: * Start basal insulin with weight based Lantus * Start bolus insulin with novolog - CF/CR parameters based on weight and stress of 2 * Add overnight checks for additional coverage due to recent severe hyperglycemia PLAN FOR INPATIENT GLYCEMIC CONTROL: * Lantus 15 units SQ given at 1100 * Continue to overlap insulin drip for 4-6 hours * Basal insulin - Lantus 10-20 units SQ HS (based on BSG) * Bolus insulin * NovoLog per scale ACHS * Goal Range: Low 140 mg/dL - High 180 mg/dL * Correction Factor: 25 mg/dL/unit * Nutritional / Prandial insulin per carb ratio of 1 unit per 8 grams CHO consumed * Add overnight checks with coverage at 00 and 04 * Oral Agents * Continue to hold outpatient oral diabetes medications. RECOMMENDATIONS FOR DISCHARGE: * * Please note that the plan above was derived based on current level of insulin resistance and hospital stress. These recommendations are appropriate for inpatient admission only. Plan of care upon discharge will need to be reassessed to avoid potential outpatient hypo/hyperglycemia. Thank you.
[2016-09-22 16:27] LABS: BUN/CREATININE RATIO 27.1 (10-20); CALCIUM 8.8 mg/dl (8.5-10.1); CREATININE 0.86 mg/dl (0.60-1.40); MAGNESIUM 1.9 mg/dl (1.8-2.4); PHOSPHORUS 2.3 mg/dl (2.5-4.9); POTASSIUM 4.3 mmol/L (3.5-5.1)
[2016-09-22] MEDS ORDERED: NURSING DECISION MEDICATION ORDER SCH (17:30)
[2016-09-22] MEDS ORDERED: MICONAZOLE NITRATE POWDER 43 GM EXT PRN (17:30)
[2016-09-22] MEDS: ATORVASTATIN 40 MG TAB PO SCH (20:48)
[2016-09-22] MEDS: INSULIN GLARGINE SOLOSTAR 100 UNITS/ML 3 ML PEN SC SCH (21:01)
[2016-09-23 07:01] LABS: BASO % 0.4 %; BASO ABS # 0.02 K/uL (0-0.2); COMPLETE YES; EOS % 2.6 %; HEMATOCRIT 38.6 % (42-52); IG% 0.2 %; LYMPH % 37.3 %; MEAN CELL VOLUME 84.1 fL (80-100); MEAN CORPUSCULAR HEMOGLOBIN 26.8 pg (25-34); MEAN CORPUSCULAR HGB CONC 31.9 g/dl (32-36); MEAN PLATELET VOLUME 9.7 fL (7.4-10.4); MONO % 10.4 %; NEUT % 49.1 %; PLATELET COUNT 152 K/uL (130-400); RED BLOOD COUNT 4.59 M/uL (4.7-6.1); WHITE BLOOD COUNT 5.36 K/uL (4.8-10.8)
[2016-09-23 07:28] LABS: CALCIUM 8.4 mg/dl (8.5-10.1); CREATININE 0.75 mg/dl (0.60-1.40); MAGNESIUM 1.8 mg/dl (1.8-2.4); PHOSPHORUS 2.5 mg/dl (2.5-4.9); POTASSIUM 3.9 mmol/L (3.5-5.1)
[2016-09-23 07:56] VITALS: BP 100/41; PULSE 67; TEMP 36.7; O2SAT 94
[2016-09-23] MEDS: ENOXAPARIN 40 MG/0.4 ML SYR SC SCH (07:57)
[2016-09-23] MEDS: LISINOPRIL 5 MG TAB PO SCH (07:57)
[2016-09-23] MEDS: ASPIRIN 81 MG ECTAB PO SCH (07:58)
[2016-09-23] MEDS: DIGOXIN 0.25 MG TAB PO SCH (07:58)
[2016-09-23] MEDS: INSULIN ASPART 100 UNITS/ML 3 ML PEN SC SCH ×4 (08:03→20:38)
[2016-09-23] MEDS: INSULIN GLARGINE SOLOSTAR 100 UNITS/ML 3 ML PEN SC SCH ×2 (08:04→20:37)
[2016-09-23] MEDS ORDERED: COUGH DROP (SUGAR FREE) LOZ 24 LOZ/1 BOX ONE (11:08)
--- NOTE | 2016-09-23 14:06 | Pharmacy Progress Note ---
Glycemic Control Progress Note Date of Service Sep 23, 2016. Scope Glycemic Pharmacist consulted for glycemic control to write orders per [facility] inpatient glycemic control protocol. Objective Accuchecks BSG (last 24hrs): Test 09/22/16 15:45 09/22/16 16:00 09/22/16 20:19 09/23/16 05:40 Random Glucose 116 mg/dl (70-99) 214 mg/dl (70-99) Bedside Glucose 119 mg/dl (70-99) 247 mg/dl (70-99) Test 09/23/16 07:32 09/23/16 11:05 Bedside Glucose 209 mg/dl (70-99) 276 mg/dl (70-99) HbA1c: Test 09/21/16 17:25 Hemoglobin A1c 11.7 % (4.5-5.6) H Recent Pertinent Medications The patient is currently receiving: * Basal insulin - Lantus 20 units SQ BID * Bolus insulin * NovoLog per scale ACHS * Goal Range: Low 140 mg/dL - High 180 mg/dL * Correction Factor: 25 mg/dL/unit * Nutritional / Prandial insulin per carb ratio of 1 unit per 8 grams CHO consumed * Oral Agents * Continue to hold outpatient oral diabetes medications Outpatient Anti-Diabetic Meds Metformin 500 mg PO BID - new medication Assessment & Plan ASSESSMENT: * See progress note from 09/21 for more background info, in short: * Pt was on IV insulin drip per protocol for [facility] - new diagnosis of T2DM. Transitioned to SQ basal/bolus regimen on 09/22. * BSGs improving but remain above goal. BSGs ranging from 118 to 285 mg/dL over the past 24hrs * Continue to titrate regimen for insulin naive patient: * AM Fasting BSG = 209, therefore Basal insulin needs increased (anticipate needing 40-50 units of basal per day) * Post-prandial BSGs are elevated, therefore tighten CF/CR * Add overnight checks for additional coverage due to recent persistent hyperglycemia * Continue goal range of 140 - 180 mg/dL for now since patient is insulin naive with significantly elevated A1c (patient may feel hypoglycemia when near euglycemia) PLAN FOR INPATIENT GLYCEMIC CONTROL: * Basal insulin - Lantus 20-25 units SQ BID * 20 units for BSG less than 180 mg/dL * 25 units for BSG 180 mg/dL or more * Bolus insulin * NovoLog per scale ACHS * Goal Range: Low 140 mg/dL - High 180 mg/dL * Tighten Correction Factor to: 18 mg/dL/unit * Tighten Nutritional / Prandial insulin per carb ratio of 1 unit per 6 grams CHO consumed * Add overnight checks with coverage at 00 and 04 * Oral Agents * Continue to hold Metformin and Januvia RECOMMENDATIONS FOR DISCHARGE: * Poor outpatient control evidence by A1c of 11.7% * Recommend continuing metformin on discharge and titrating dose to goal of 2000 mg per day * Increase by 500 mg per week as tolerated. Take with food to minimize GI side effects. * Recommend discharging on basal + mealtime insulin for A1c > 10% * Exact doses to be determined once additional BSG data on Lantus is available and after CDE interviews patient * Please note that the plan above was derived based on current level of insulin resistance and hospital stress. These recommendations are appropriate for inpatient admission only. Plan of care upon discharge will need to be reassessed to avoid potential outpatient hypo/hyperglycemia. Thank you.
[2016-09-23 15:57] VITALS: BP 115/71; PULSE 82; TEMP 36.4; O2SAT 98
--- NOTE | 2016-09-23 17:03 | Progress Note ---
Internal Med Progress Note Date of Service: Sep 23, 2016. Provider Documentation: SUBJECTIVE: Patient is lying in his bed in no apparent distress. Is hard to hear but can answer simple questions well. Denies any chest pain/pressure or SOB. Feels stronger than when he came in. OBJECTIVE: Vital Signs-as noted below Examination: General Appearance: Alert/Awake lying in his bed in no apparent distress ENT: Extremely hard of hearing. Ears, Nose & Throat are normal looking. Respiratory/Chest: chest non-tender, lungs clear, normal breath sounds, no respiratory distress, no accessory muscle use Cardiovascular: regular rate, rhythm, no edema, + systolic murmur which is best heard at second left intercostal space. Abdomen/GI: normal bowel sounds, non tender, soft Extremities/Musculoskeletal: normal inspection, no calf tenderness, normal capillary refill, no pedal edema, normal range of motion Neurologic/Psych: concentrator operator II-XII nml as tested, no motor/sensory deficits, alert, normal mood/affect, oriented x 3 Skin: normal color Lymphatic: no adenopathy Lab data as noted below. ASSESSMENT & PLAN: 86 year old male with a PMH of CAD s/p CABG x5, nonrheumatic aortic stenosis, osteoarthritis, BPH, ureteral tumor s/p resection presents with polydipsia and polyuria found to have hyperosmolar hyperglycemia Hyperosmolar Hyperglycemia State: BSGs > 600, Osm > 300 on admission, glucosuria , ketonuria & no anion gap Likely worsened by recent viral gastroenteritis/diarrhea picture. Was significantly dehydrated on admission. Clinically improving.BS is gradually coming downwards. -Received fluid bolus in ER and continued IVF -Monitoring electrolytes closely -Started Januvia 50 mg daily -Discussed with Pharmacist and will start Lantus. -Pharmacy glycemic control consult -Hba1c is 11.7 .(last Ha1c in June 2016 was 6.9%) -Deputy Court consult for diabetic education History CAD s/p CABG: No acute cardiac issue. -Restarted aspirin -Continue b-iván, high intensity statin -Continue Digoxin Hypertension: Monitoring BP closely -Continue Lisinopril 5 mg daily under parameters Hypercholesterolemia: Continue Statin. History Aortic Stenosis DVT Prophylaxis: Sq Lovenox. Code Status: FULL CODE Disposition: Discharge once is clinically stable.So far he had been living independently. Has macular degeneration so it will be challenging how he will be able to take Insulin. Discussed with his daughter in detail. Vital Signs: Date Time Temp Pulse Resp B/P (MAP) Pulse Ox O2 Delivery O2 Flow Rate FiO2 09/23/16 16:00 Room Air 09/23/16 15:57 36.4 82 20 115/71 (86) 98 Room Air 09/23/16 08:00 Room Air 09/23/16 07:58 66 09/23/16 07:56 36.7 67 18 100/41 (60) 94 Room Air 09/23/16 00:00 Room Air 09/22/16 23:01 36.7 71 20 120/71 (87) 98 Room Air 09/22/16 20:00 Room Air Lab Results: Results Past 24 Hours Test 09/22/16 20:19 09/23/16 05:40 09/23/16 07:32 09/23/16 11:05 Range/Units Bedside Glucose 247 209 276 70-99 mg/dl White Blood Count 5.36 4.8-10.8 K/uL Red Blood Count 4.59 4.7-6.1 M/uL Hemoglobin 12.3 14.0-18.0 g/dL Hematocrit 38.6 42-52 % Mean Corpuscular Volume 84.1 80-100 fL Mean Corpuscular Hemoglobin 26.8 25-34 pg Mean Corpuscular Hemoglobin Concent 31.9 32-36 g/dl Platelet Count 152 130-400 K/uL Mean Platelet Volume 9.7 7.4-10.4 fL Neutrophils (%) (Auto) 49.1 % Lymphocytes (%) (Auto) 37.3 % Monocytes (%) (Auto) 10.4 % Eosinophils (%) (Auto) 2.6 % Basophils (%) (Auto) 0.4 % Neutrophils # (Auto) 2.63 1.4-6.5 K/uL Lymphocytes # (Auto) 2.00 1.2-3.4 K/uL Monocytes # (Auto) 0.56 0.11-0.59 K/uL Eosinophils # (Auto) 0.14 0-0.5 K/uL Basophils # (Auto) 0.02 0-0.2 K/uL RDW Standard Deviation 46.1 36.4-46.3 fL RDW Coefficient of Variation 15.1 11.5-14.5 % Immature Granulocyte % (Auto) 0.2 % Immature Granulocyte # (Auto) 0.01 0.00-0.02 K/uL Sodium Level 141 136-145 mmol/L Potassium Level 3.9 3.5-5.1 mmol/L Chloride Level 109 98-107 mmol/L Carbon Dioxide Level 26 21-32 mmol/L Anion Gap 6.0 3-11 mmol/L Blood Urea Nitrogen 21 7-18 mg/dl Creatinine 0.75 0.60-1.40 mg/dl Est Creatinine Clear Calc Drug Dose 72.5 ml/min Estimated GFR () 95.6 Estimated GFR (Non- 82.5 BUN/Creatinine Ratio 28.0 10-20 Random Glucose 214 70-99 mg/dl Calcium Level 8.4 8.5-10.1 mg/dl Phosphorus Level 2.5 2.5-4.9 mg/dl Magnesium Level 1.8 1.8-2.4 mg/dl Digoxin Level 1.1 0.8-2.0 ng/ml Test 09/23/16 16:33 Range/Units Bedside Glucose 293 70-99 mg/dl
[2016-09-23] MEDS: ATORVASTATIN 40 MG TAB PO SCH (20:34)
[2016-09-23 23:36] VITALS: BP 128/65; PULSE 76; TEMP 36.5; O2SAT 95
[2016-09-24] MEDS: INSULIN ASPART 100 UNITS/ML 3 ML PEN SC SCH ×5 (00:08→12:18)
[2016-09-24 07:33] LABS: HEMATOCRIT 34.5 % (42-52); MEAN CELL VOLUME 83.9 fL (80-100); MEAN CORPUSCULAR HEMOGLOBIN 29.2 pg (25-34); MEAN CORPUSCULAR HGB CONC 34.8 g/dl (32-36); MEAN PLATELET VOLUME 9.6 fL (7.4-10.4); PLATELET COUNT 135 K/uL (130-400); RED BLOOD COUNT 4.11 M/uL (4.7-6.1); WHITE BLOOD COUNT 4.81 K/uL (4.8-10.8)
[2016-09-24 07:34] VITALS: BP 129/74; PULSE 74; TEMP 36.5; O2SAT 93
[2016-09-24 08:02] LABS: CREATININE 0.7 mg/dl (0.60-1.40)
[2016-09-24] MEDS: ENOXAPARIN 40 MG/0.4 ML SYR SC SCH (08:27)
[2016-09-24] MEDS: DIGOXIN 0.25 MG TAB PO SCH (08:28)
[2016-09-24] MEDS: ASPIRIN 81 MG ECTAB PO SCH (08:28)
[2016-09-24] MEDS: LISINOPRIL 5 MG TAB PO SCH (08:28)
[2016-09-24] MEDS ORDERED: INSULIN GLARGINE SOLOSTAR 100 UNITS/ML 3 ML PEN SC SCH ×2 (09:00→17:00)
--- NOTE | 2016-09-24 11:20 | Pharmacy Progress Note ---
Glycemic Control Progress Note Date of Service Sep 24, 2016. Scope Glycemic Pharmacist consulted for glycemic control to write orders per [facility] inpatient glycemic control protocol. Objective Accuchecks BSG (last 24hrs): Test 09/23/16 16:33 09/23/16 20:04 09/23/16 23:58 09/24/16 04:08 Bedside Glucose 293 mg/dl (70-99) 284 mg/dl (70-99) 260 mg/dl (70-99) 165 mg/dl (70-99) Test 09/24/16 07:23 Bedside Glucose 168 mg/dl (70-99) HbA1c: Test 09/21/16 17:25 Hemoglobin A1c 11.7 % (4.5-5.6) H Recent Pertinent Medications The patient is currently receiving: * Basal insulin: Lantus 20-25 units every 12 hours based on degree of hyperglycemia * Correctional Insulin: Novolog Correction per scale ACHS Goal Range: Low 120 mg/dL - High 160 mg/dL Correction Factor: 18 mg/dL/unit * Prandial insulin: Per carb ratio of 1 unit per 6 grams CHO consumed * Oral Agents: On hold for admission Outpatient Anti-Diabetic Meds Oral Agents -new Rx Assessment & Plan ASSESSMENT: * See progress note from 09/23/16 for more background info, in short: * Pt receiving SQ basal bolus insulin regimen for hyperglycemia secondary to baseline DM (outpatient regimen on hold), [facility] * Patient is currently receiving an average of 91 units of insulin per day * 45 units of basal insulin * 46 units of prandial/correctional insulin * BSGs ranging 165 - 293 mg/dl over the past 24hrs * Changes needed to insulin regimen: * AM Fasting BSG = 168 mg/dl. This is slightly above goal range for patient based on inpatient targets and co-morbidities. Therefore Basal insulin needs increased slightly * Post-prandial BSGs are elevated/BSGs rise throughout the day therefore need to tighten CF/CR * Total daily dose = 90 units. Keep regimen distributed regimen 50%:50% basal: prandial to prevent hypo/hyperglycemia. Slight increase in total daily dose is needed PLAN FOR INPATIENT GLYCEMIC CONTROL: Increase regimen based on estimated total daily dose of 90-100 units/day * Oral Agents * Continue to hold outpatient oral diabetes medications. * Provider resuming Januvia today * Basal insulin: Increase dosing & change to once daily for easier outpatient dosing * Lantus 22 units SQ BID --> convert to Lantus 40 units SQ daily * Bolus insulin * NovoLog per scale ACHS or Q6hrs while NPO * Goal Range: Low 120 mg/dL - High 160 mg/dL * Correction Factor: 15 mg/dL/unit * Nutritional / Prandial insulin per carb ratio of 1 unit per 5 grams CHO consumed RECOMMENDATIONS FOR DISCHARGE: * Poor outpatient control evidence by A1c of 11.7% * Goal A1c is ~ 8-8.5% based on age/comorbidities/life expectancy * Recommend continuing metformin on discharge and titrating dose to goal of 2000 mg per day * Increase by 500 mg per week as tolerated. Take with food to minimize GI side effects. * Recommend continuing Januvia 50mg PO daily * Both metformin and Januvia are new Rx, pt has not started yet as an outpatient (Rx not picked up at pharmacy per daughter) * Recommend discharging on basal + mealtime insulin for A1c > 10% * Lantus 40 units SQ daily * Please note that the plan above was derived based on current level of insulin resistance and hospital stress. These recommendations are appropriate for inpatient admission only. Plan of care upon discharge will need to be reassessed to avoid potential outpatient hypo/hyperglycemia. Thank you.
--- NOTE | 2016-09-24 11:35 | Progress Note ---
Internal Med Progress Note Date of Service: Sep 24, 2016. Provider Documentation: SUBJECTIVE: Patient is lying in his bed in no apparent distress. Is hard to hear but can answer simple questions well. Denies any chest pain/pressure or SOB. Feels stronger than when he came in. Daughter is sitting at bedside. OBJECTIVE: Vital Signs-as noted below Examination: General Appearance: Alert/Awake lying in his bed in no apparent distress ENT: Extremely hard of hearing. Ears, Nose & Throat are normal looking. Respiratory/Chest: chest non-tender, lungs clear, normal breath sounds, no respiratory distress, no accessory muscle use Cardiovascular: regular rate, rhythm, no edema, + systolic murmur which is best heard at second left intercostal space. 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 ASSESSMENT & PLAN: 86 year old male with a PMH of CAD s/p CABG x5, nonrheumatic aortic stenosis, osteoarthritis, BPH, ureteral tumor s/p resection presents with polydipsia and polyuria found to have hyperosmolar hyperglycemia Hyperosmolar Hyperglycemia State: BSGs > 600, Osm > 300 on admission, glucosuria , ketonuria & no anion gap Likely worsened by recent viral gastroenteritis/diarrhea picture. Was significantly dehydrated on admission. Clinically improving.BS is gradually coming downwards. -Received fluid bolus in ER and continued IVF -Monitoring electrolytes closely -Started Januvia 50 mg daily -Discussed with Pharmacist and will start Lantus. -Pharmacy glycemic control consult -Hba1c is 11.7 .(last Ha1c in June 2016 was 6.9%) -Junior Automation Engineer consult for diabetic education. -Challenge is that will have to keep him on long acting Lantus only as he will not be able to manage taking short acting shots with meals due to his macular degeneration. -Continue Januvia 50 mg daily and add metformin 500 mg BID upon discharge History CAD s/p CABG: No acute cardiac issue. -Restarted aspirin -Continue b-iván, high intensity statin -Continue Digoxin Hypertension: Monitoring BP closely -Continue Lisinopril 5 mg daily under parameters Hypercholesterolemia: Continue Statin. History Aortic Stenosis DVT Prophylaxis: Sq Lovenox. Code Status: FULL CODE Disposition: Discharge home later today. So far he had been living independently. Has macular degeneration so it will be challenging how he will be able to take Insulin. Discussed with his daughter in detail. Requested Discharge planning as will benefit from Home Health Aid and Visiting nurse. Vital Signs: Date Time Temp Pulse Resp B/P (MAP) Pulse Ox O2 Delivery O2 Flow Rate FiO2 09/24/16 08:28 68 09/24/16 08:00 Room Air 09/24/16 07:34 36.5 74 16 129/74 (92) 93 Room Air 09/24/16 00:00 Room Air 09/23/16 23:36 36.5 76 20 128/65 (86) 95 Room Air 09/23/16 16:00 Room Air 09/23/16 15:57 36.4 82 20 115/71 (86) 98 Room Air Lab Results: Results Past 24 Hours Test 09/23/16 16:33 09/23/16 20:04 09/23/16 23:58 09/24/16 04:08 Range/Units Bedside Glucose 293 284 260 165 70-99 mg/dl Test 09/24/16 07:08 09/24/16 07:23 09/24/16 11:22 Range/Units White Blood Count 4.81 4.8-10.8 K/uL Red Blood Count 4.11 4.7-6.1 M/uL Hemoglobin 12.0 14.0-18.0 g/dL Hematocrit 34.5 42-52 % Mean Corpuscular Volume 83.9 80-100 fL Mean Corpuscular Hemoglobin 29.2 25-34 pg Mean Corpuscular Hemoglobin Concent 34.8 32-36 g/dl RDW Standard Deviation 46.1 36.4-46.3 fL RDW Coefficient of Variation 15.1 11.5-14.5 % Platelet Count 135 130-400 K/uL Mean Platelet Volume 9.6 7.4-10.4 fL Creatinine 0.70 0.60-1.40 mg/dl Est Creatinine Clear Calc Drug Dose 77.7 ml/min Estimated GFR () 98.3 Estimated GFR (Non- 84.9 Bedside Glucose 168 244 70-99 mg/dl
[2016-09-24 13:46] VITALS: Ht 160 cm; Wt 99.4 kg
[2016-09-24] MEDS ORDERED: SITAGLIPTIN 25 MG TAB PO ONE (14:00)
[2016-09-24] MEDS ORDERED: JNV25 PO (14:03)
[2016-09-24] MEDS ORDERED: ASPEC81 PO (14:03)
[2016-09-24] MEDS ORDERED: INSDGIPEN SC (14:03)
--- NOTE | 2016-09-24 14:07 | Discharge Instructions ---
Discharge Instructions Date of Service Sep 24, 2016. Admission Reason for Admission: Hyperosmolarity Due To Secondary Diabetes Mellitus Discharge Discharge Diagnosis / Problem: Uncontrolles Diabetes causing Hyperosmolar State Discharge Goals Goal(s): Decrease discomfort, Improve function, Increase independence, Improve disease control, Learn about illness, Diagnostic testing, Prevent Disease Progression Activity Recommendations Activity Limitations: resume your previous activity (As tolerated following fall precautions) Lifting Limitations: gradually increase as tolerated Exercise/Sports Limitations: gradually increase as tolerated Shower/Bathe: no limitations . Instructions / Follow-Up Instructions / Follow-Up 1. Please review all the medications and take them as directed. 2. Use Insulin as directed about an hour after dinner daily. 3. Take all the medications with food. Follow up with PCP in 3-5 days after discharge. Current Hospital Diet Patient's current hospital diet: Diabetes Type 2 Diet Discharge Diet Recommended Diet: AHA Diet (Heart Healthy), Low Sodium Diet (2gm Na) Pending Studies Studies pending at discharge: no Laboratory Results Hemoglobin A1c Test 09/21/16 17:25 Range/Units Estimated Average Glucose 289 mg/dl Hemoglobin A1c 11.7 H 4.5-5.6 % Medical Emergencies . Who to Call and When: Medical Emergencies: If at any time you feel your situation is an emergency, please call 911 immediately. . Non-Emergent Contact Non-Emergency issues call your: Primary Care Provider . . "Provider Documentation" section prepared by Da Walter. . VTE Core Measure Inpt VTE Proph given/why not?: Enoxaparin (Lovenox)SQ
--- NOTE | 2016-09-24 14:10 | Discharge Summary ---
Discharge Summary Date of Service Sep 24, 2016. Discharge Summary Admission Date: Sep 21, 2016 at 20:37 Discharge Date: Sep 24, 2016 Discharge Disposition: Home with services Principal Diagnosis: Uncontrolled Diabetes causing Hyperosmolarity Secondary Diagnoses/Problems: Hypertension Hypercholesterolemia History CAD S/P CABG History Aortic Stenosis Procedures: NONE Vaccinations: NONE Consultations: NONE Pending Studies/Follow-Up: NONE Medication Reconciliation New Medications: Aspirin (Aspirin EC Low Dose) 81 Mg Ectab 81 MG PO QAM, #100 Insulin Glargine (Lantus Solostar) 100 Unit/Ml Inj 40 UNITS SC DAILY, #3 VIAL 1 Refill Sitagliptin (Januvia) 25 Mg Tab 50 MG PO DAILY, #30 TAB 1 Refill Continued Medications: Atenolol (Tenormin) 50 Mg Tab 50 MG PO QAM, TAB Atorvastatin (Lipitor) 80 Mg Tab 80 MG PO HS, TAB Cholecalciferol (Vitamin D3) 1,000 Unit Tab 2 TAB PO QAM for 90 Days, #180 TAB 3 Refills Digoxin (Digox) 250 Mcg Tab 1 TAB PO QAM Lisinopril (Zestril) 5 Mg Tab 5 MG PO QAM, TAB Metformin HCl (Metformin HCl) 500 Mg Tab 1 TAB PO BID Multivitamin (Multivitamin) Tab 1 TAB PO QAM, TAB Ocuvite Preservision (Ocuvite Preservision) 1 Tab Tab 1 TAB PO BID, TAB Admission Information HPI (per Admitting provider): This is an 86 year old male with a PMH of CAD s/p CABG x5, nonrheumatic aortic stenosis, osteoarthritis, BPH, ureteral tumor s/p resection presents with a 4-5 week history of polydipsia, polyuria; as per angiographer, he has had some confusion the past few days. He states that he has been drinking a lot of water , but is always having to get up and go to the bathroom right after. In June 2016, he had a removal of a L ureteral tumor, but states that he's had no issues with urination until about a month ago. Was seen today (September 21) at primary care physician's office - urinalysis suggested ketonuria/glucosuria; he was given metformin and blood work was obtained. When blood work revealed BSGs > 600, he was told to come to the ER. Upon presentation, he had BSGs >600, serum osm > 300, normal anion gap, normal bicarb. He is extremely hard of hearing, but states he has no other symptoms besides the polyuria and polydipsia. As per his , she states that about 2 weeks ago he developed a few day history of diarrhea, which resolved on its own. He has been weaker and slightly confused since then. Currently, laying in bed in no distress. Physical Exam (per Admitting): General Appearance: no apparent distress ENT: + pertinent finding (extremely hard of hearing, hearing aids in place) Respiratory/Chest: chest non-tender, lungs clear, normal breath sounds, no respiratory distress, no accessory muscle use Cardiovascular: regular rate, rhythm, no edema, + systolic murmur (best heard at second left intercostal space) Abdomen/GI: normal bowel sounds, non tender, soft Extremities/Musculoskelatal: normal inspection, no calf tenderness, normal capillary refill, no pedal edema, normal range of motion Neurologic/Psych: overlock sleeve setter II-XII nml as tested, no motor/sensory deficits, alert , normal mood/affect, oriented x 3 Skin: normal color Lymphatic: no adenopathy Hospital Course 86 year old male with a PMH of CAD s/p CABG x5, nonrheumatic aortic stenosis, osteoarthritis, BPH, ureteral tumor s/p resection presents with polydipsia and polyuria found to have hyperosmolar hyperglycemia Hyperosmolar Hyperglycemia State: BSGs > 600, Osm > 300 on admission, glucosuria , ketonuria & no anion gap Likely worsened by recent viral gastroenteritis/diarrhea picture. Was significantly dehydrated on admission. Clinically improving.BS is gradually coming downwards. -Received fluid bolus in ER and continued IVF -Monitoring electrolytes closely -Started Januvia 50 mg daily -Discussed with Pharmacist and will start Lantus. -Pharmacy glycemic control consult -Hba1c is 11.7 .(last Ha1c in June 2016 was 6.9%) -Government Professor consult for diabetic education. -Challenge is that will have to keep him on long acting Lantus only as he will not be able to manage taking short acting shots with meals due to his macular degeneration. -Continue Januvia 50 mg daily and add metformin 500 mg BID upon discharge History CAD s/p CABG: No acute cardiac issue. -Restarted aspirin -Continue b-iván, high intensity statin -Continue Digoxin Hypertension: Monitoring BP closely -Continue Lisinopril 5 mg daily under parameters Hypercholesterolemia: Continue Statin. History Aortic Stenosis DVT Prophylaxis: Sq Lovenox. Code Status: FULL CODE Disposition: Discharge home later today. So far he had been living independently. Has macular degeneration so it will be challenging how he will be able to take Insulin. Discussed with his daughter in detail. Requested Discharge planning as will benefit from Home Health Aid and Visiting nurse. Total time spent on discharge = 40 minutes. This includes examination of the patient, discharge planning, medication reconciliation, and communication with other providers. Discharge Instructions Discharge Discharge Diagnosis / Problem: Uncontrolles Diabetes causing Hyperosmolar State Discharge Goals Goal(s): Decrease discomfort, Improve function, Increase independence, Improve disease control, Learn about illness, Diagnostic testing, Prevent Disease Progression Activity Recommendations Activity Limitations: resume your previous activity (As tolerated following fall precautions) Lifting Limitations: gradually increase as tolerated Exercise/Sports Limitations: gradually increase as tolerated Shower/Bathe: no limitations . Instructions / Follow-Up Instructions / Follow-Up 1. Please review all the medications and take them as directed. 2. Use Insulin as directed about an hour after dinner daily. 3. Take all the medications with food. Follow up with PCP in 3-5 days after discharge. Current Hospital Diet Patient's current hospital diet: Diabetes Type 2 Diet Discharge Diet Recommended Diet: AHA Diet (Heart Healthy), Low Sodium Diet (2gm Na) Additional Copies To Rajiv Purvis D.O.
[2016-09-24 14:19] VITALS: BP 129/74; PULSE 68; TEMP 36.5; O2SAT 93
[2016-09-24 15:09] VITALS: BP 96/47; PULSE 37; TEMP 36.2; O2SAT 93
[2016-09-25] MEDS ORDERED: SITAGLIPTIN 25 MG TAB PO SCH (09:00)
[2016-09-25] MEDS ORDERED: INSULIN GLARGINE SOLOSTAR 100 UNITS/ML 3 ML PEN SC SCH (09:00)
== END 2016-09-24 16:30 | disposition home health service (06) | DRG 639 ==
LOC: C.EDB 16:20 → C.2T 20:37 → ENRESERV 20:51 → C.MS2W 09-22 16:41
PROVIDERS: ADMIT Family Medicine; ATTEND Emergency Medicine
DX: E11.00 Type 2 diabetes mellitus with hyperosmolarity without nonketotic hyperglycemic-hyperosmolar coma (NKHHC) (principal); E86.0 Dehydration; I10 Essential (primary) hypertension; E78.00 Pure hypercholesterolemia, unspecified; I25.10 Atherosclerotic heart disease of native coronary artery without angina pectoris; I35.0 Nonrheumatic aortic (valve) stenosis; N40.0 Benign prostatic hyperplasia without lower urinary tract symptoms; M19.90 Unspecified osteoarthritis, unspecified site; H91.90 Unspecified hearing loss, unspecified ear; Z87.891 Personal history of nicotine dependence; Z95.1 Presence of aortocoronary bypass graft; Z79.899 Other long term (current) drug therapy

== ENCOUNTER → 2016-10-05 | Outpatient (CLI) | payer OTHER ==
[~2016-10-05] MED LIST changes: +ASPEC81 PO; +GLC500 PO; +INSDGIPEN SC; +JNV25 PO; -PSYL1POW4 PO
--- NOTE | 2016-10-05 08:48 | DIAGNOSTIC IMAGING REPORT ---
(BARIUM SWALLOW) ESOPHAGUS CLINICAL HISTORY: 86 years-old Male with R13.19. Dysphagia and aspiration. TECHNIQUE: Barium contrast and effervescent crystals were administered to the patient under fluoroscopic examination. Multiple images were obtained and submitted for review. FLUOROSCOPY TIME: 0.6 minutes COMPARISON: Chest radiograph 09/21/2016. FINDINGS: During deglutition, contrast material flowed freely through the cervical esophagus. Shortly after the beginning of the exam, the patient demonstrated silent aspiration. The exam was then terminated. Sternotomy wires are incidentally noted as well as cervical fusion hardware. IMPRESSION: The exam was terminated secondary to large degree of silent aspiration. Speech therapy evaluation is recommended. The above report was generated using voice recognition software. It may contain grammatical, syntax or spelling errors. Electronically signed by: Matias Strauss M.D. 10/05/2016 8:47 AM Dictated Date/Time: 10/05/2016 8:42 AM
== END | disposition home or self-care (01) ==
LOC: C.RAD 08:19
PROVIDERS: ATTEND Student in an Organized Health Care Education/Training Program
DX: R13.19 Other dysphagia (principal); T17.920A Food in respiratory tract, part unspecified causing asphyxiation, initial encounter; X58.XXXA Exposure to other specified factors, initial encounter

== ENCOUNTER → 2016-10-15 | Outpatient (CLI) | payer OTHER | END | disposition home or self-care (01) | LOC: C.LABSPEC 17:07 | PROVIDERS: ATTEND Urology | DX: N39.0 Urinary tract infection, site not specified (principal) ==

== ENCOUNTER → 2017-01-14 | Outpatient (CLI) | payer OTHER ==
[~2017-01-14] MED LIST changes: +OPTIRAY 320 IV PRN
--- NOTE | 2017-01-14 10:21 | DIAGNOSTIC IMAGING REPORT ---
ABD/PELVIS COMBO HISTORY: 86 years-old Male URETERAL TUMOR follow-up study in a patient with ureteral tumor. COMPARISON: CT abdomen and pelvis 06/18/2016 and 02/22/2016 TECHNIQUE: Multiple axial CT images of both the abdomen and pelvis were obtained both with and without 120 mL Optiray 320. A dose lowering technique was used consistent with the principals of LUPE. FINDINGS: Mild subpleural reticular opacities of the lung bases are seen suggesting pleural parenchymal fibrotic scarring. No pneumoperitoneum. Prior median sternotomy. Imaged inferior cardiac chambers are moderately enlarged with coronary arterial calcifications. Multiple low attenuating lesions of the liver are again seen suggesting cysts which appears stable. Partially calcified ovoid circumscribed lesion of the left hepatic lobe is noted, 3.3 x 1.2 cm which appears stable unchanged. No intrahepatic biliary ductal dilation identified. Spleen, pancreas, gallbladder and left adrenal gland are unremarkable. There is a 1.7 x 1.0 cm right adrenal adenoma, unchanged. There are approximately 3 renal calculi on the left, largest of which measures 4 mm within the inferior pole. There are proximally 4 calcifications seen within the superior pole right kidney measuring up to 4 mm suggesting calculi. No ureteral calculi identified. No hydronephrosis. Renal cysts are present bilaterally, largest of which measures 2.4 cm within the inferior pole right kidney and 1.9 cm within the anterior aspect of the interpolar left kidney. Subcentimeter low attenuating lesions of the kidneys bilaterally are too small to characterize, likely also reflecting cysts. 9 x 7 mm filling defects in a superior calyx of the left kidney is again seen on image 86 series 5 which appears unchanged. There is a questioned 6 mm filling defect noted within a superior pole right kidney calyx as seen on image 68 of series 5 likely correlating with the 5 mm filling defect seen on study dated 02/22/2016. Portions of the mid and distal left ureter are not well opacified, however appear to be within normal limits. Urinary bladder is unremarkable. TURP defect of the prostate noted. Moderate to extensive atherosclerotic plaquing of the abdominal aorta which is tortuous and mildly ectatic, 2.8 cm without aneurysm. No bulky adenopathy identified. There is no bowel obstruction. Stool ball in the rectal vault noted. Moderate stool volume suggests constipation. Moderate colonic diverticulosis without diverticulitis. Soft tissues are unremarkable. Bones appear intact. Left hip arthroplasty noted. Severe multilevel degenerative changes of the spine. IMPRESSION: 1. Unchanged appearance of an irregular 7 x 9 mm filling defect within a calyx of the superior pole left kidney. 6 mm filling defect within a superior pole calyx on the right likely correlates with 5 mm lesion seen on study dated 02/22/2016. 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 Follow-up recommended. 2. Bilateral nephrolithiasis without ureteral calculi or hydronephrosis. 3. Renal and hepatic cysts redemonstrated. 4. TURP defect of the prostate. 5. Additional findings as above. The above report was generated using voice recognition software. It may contain grammatical, syntax or spelling errors. Electronically signed by: Matias Strauss M.D. 01/14/2017 10:19 AM Dictated Date/Time: 01/14/2017 10:05 AM
== END | disposition home or self-care (01) ==
LOC: C.CTS 09:04
PROVIDERS: ATTEND Urology
DX: D49.59 Neoplasm of unspecified behavior of other genitourinary organ (principal); N20.0 Calculus of kidney; N28.1 Cyst of kidney, acquired; K76.89 Other specified diseases of liver

== ENCOUNTER → 2017-05-03 | Outpatient (CLI) | payer OTHER ==
[~2017-05-03] MED LIST changes: -OPTIRAY 320 IV PRN
== END | disposition home or self-care (01) ==
LOC: C.LABSPEC 14:46
PROVIDERS: ATTEND Urology
DX: N40.1 Benign prostatic hyperplasia with lower urinary tract symptoms (principal); N13.9 Obstructive and reflux uropathy, unspecified

== ENCOUNTER → 2017-10-15 | Outpatient (CLI) | payer OTHER ==
[~2017-10-15] MED LIST changes: -ASPEC81 PO; +ASPI-320 PO
[2017-10-15 13:12] LABS: CREATININE 0.85 mg/dl (0.60-1.40)
== END | disposition home or self-care (01) ==
LOC: C.LABPBG 09:52
PROVIDERS: ATTEND Urology
DX: R31.0 Gross hematuria (principal)

== ENCOUNTER → 2017-10-24 | Outpatient (CLI) | payer OTHER | END | disposition home or self-care (01) | LOC: C.LABPBG 08:16 | PROVIDERS: ATTEND Urology | DX: R31.0 Gross hematuria (principal) ==